=== PATIENT | female | born 1945 | race Caucasian/White ===

== ENCOUNTER → 2016-04-27 | Outpatient (CLI) | payer OTHER ==
[~2016-04-27] MED LIST: CRDCD240 PO; HYDC25 PO; LISI-725 PO
--- NOTE | 2016-04-27 16:03 | MAMMOGRAPHY REPORT ---
BILATERAL DIGITAL SCREENING MAMMOGRAM WITH CAD: 04/27/2016 CLINICAL HISTORY: Routine screening. Patient has no complaints. TECHNIQUE: Current study was also evaluated with a Computer Aided Detection (CAD) system. Bilatera l CC and MLO views were obtained. COMPARISON: Comparison is made to exams dated: 03/25/2015 mammogram, 03/24/2014 mammogram, 03/09/2013 ma mmogram, 02/28/2012 mammogram, 02/23/2010 mammogram, and 02/26/2011 mammogram - [facility]. BREAST COMPOSITION: There are scattered areas of fibroglandular density in both breasts. FINDINGS: No suspicious masses, calcifications, or areas of architectural distortion are noted in e ither breast. There has been no significant interval change compared to prior exams. Bilateral iraida gn-appearing calcifications are not significantly changed. A biopsy marker clip is again noted in t he right breast. Bilateral asymmetries are stable compared to prior exams. IMPRESSION: ACR BI-RADS CATEGORY 2: BENIGN There is no mammographic evidence of malignancy. A 1 year screening mammogram is recommended. The p atient will receive written notification of the results. Approximately 10% of breast cancers are not detected with mammography. A negative mammographic repor t should not delay biopsy if a clinically suggestive mass is present. Julia Gates M.D. /:04/27/2016 14:48:52 Licensed [employer]: Fiordaliza Thompson, [facility] letter sent: Normal 1/2 BI-RADS Code: ACR BI-RADS Category 2: Benign
== END | disposition home or self-care (01) ==
LOC: C.MAMM 09:43
PROVIDERS: ATTEND Family Medicine
DX: Z12.31 Encounter for screening mammogram for malignant neoplasm of breast (principal)

== ENCOUNTER 2017-04-23 13:19 | Emergency (ER) | payer OTHER ==
[2017-04-23 13:27] VITALS: TEMP 36.7
[2017-04-23] MEDS ORDERED: SODIUM CHLORIDE 0.9% 1000ML 1,000 ML IV STA (13:46)
--- NOTE | 2017-04-23 13:53 | EMERGENCY ROOM VISIT NOTE ---
History First contact with patient: 13:31 Chief Complaint: CONSTIPATION Stated Complaint: UNABLE TO HAVE A BOWEL MOVEMENT Nursing Triage Summary: pt reports constipation. last bm was saturday. pt used laxative yesterday with no result. History of Present Illness The patient is a 72 year old female who presents to the Emergency Room with complaints of constipation 3 weeks. The patient states she has been having bowel movements and that amount of time, but seems to have a "partial bowel movement, followed by a watery bowel movement." The patient states over the past 1 week, she has had very small, hard bowel movements which are difficult for her to pass. She states her last bowel movement like this was on Saturday, 2 days ago. She states overall she is feeling well, denies any recent illness or fever. She denies any significant abdominal pain, but states she does have a fullness sensation in her abdomen. She states yesterday, she took 2 doses of Dulcolax [id number], and while she got the urge to move her bowels, she was unable. She states today, she is experiencing a generalized fullness. She has not tried any enemas or suppositories. She states her diet is good and she tries to eat high-fiber foods. She states she does not drink enough fluids. She has been passing gas, and denies any history of bowel obstruction. She does have a family history of colon cancer in her father, and does have colonoscopies every 5 years. She states her last colonoscopy was approximately 1-1/2 years ago, and she reports a few small polyps were removed, but otherwise there were no abnormalities. The patient has not seen her PCP or butcher all round regarding her complaint. She denies any urinary symptoms, upper respiratory infection symptoms, chest pain, difficulty breathing, weakness , numbness or tingling, or flank pain. Review of Systems A complete 10 point review of systems was reviewed with the patient with pertinent positives and negatives as per history of present illness. All else were negative. Past Medical/Surgical History Hypertension Social History Smoking Status: Never Smoker Current/Historical Medications Scheduled Diltiazem Hcl Extended Release (Diltiazem Hcl), 1 TAB PO DAILY Hydrochlorothiazide (Hctz), 25 MG PO DAILY Lisinopril (Lisinopril), 20 MG PO DAILY Physical Exam Vital Signs Date Time Temp Pulse Resp B/P (MAP) Pulse Ox O2 Delivery O2 Flow Rate FiO2 04/23/17 14:00 75 18 155/72 96 Room Air 04/23/17 13:27 36.7 82 20 128/83 98 Room Air Physical Exam VITALS: Vitals are noted on the nurse's note and reviewed by myself. Vital signs stable. GENERAL: This is a 72-year-old white female, in no acute distress, nondiaphoretic, well-developed well-nourished. SKIN: The skin was without rashes, erythema, edema, or bruising. There is no tenting of the skin. Capillary reflex less than 2 seconds. HEAD: Normocephalic atraumatic. EARS: External auditory canals clear, tympanic membranes pearly zheng without erythema or effusion bilaterally. EYES: Pupils equal round and reactive to light and accommodation. Conjunctivae without injection, sclerae without icterus. Extraocular movements intact. NOSE: Patent, turbinates without inflammation or discharge. No sinus tenderness. MOUTH: Mucous membranes moist. Tonsils are not enlarged. Pharynx without erythema or exudate. Uvula midline. Airway patent. Tongue does not deviate. NECK: Supple without nuchal rigidity. No lymphadenopathy. No thyromegaly. Cervical spine is nontender. No JVD. HEART: Regular rate and rhythm without murmurs gallops or rubs. LUNGS: Clear to auscultation bilaterally without wheezes, rales or rhonchi. No dullness to percussion. No retractions or accessory muscle use. ABDOMEN: Positive bowel sounds x 4. Normal tympanic percussion. Soft, nontender, without masses or organomegaly. Garcia sign negative. No guarding or rebound tenderness. MUSCULOSKELETAL: No muscle atrophy, erythema, or edema noted. Full range of motion without joint tenderness in all extremities. No tenderness to palpation. Normal gait. Strength 5/5 throughout. NEURO: Patient was alert and oriented to person place and time. Normal sensation to light and sharp touch. Deep tendon reflexes 2+ throughout. No focal neurological deficits. Medical Decision & Procedures ER Provider Diagnostic Interpretation: ABDOMEN 2VIEW W/PA CHEST RTN HISTORY: 72 years-old Female constipation constipation with acute generalized abdominal pain COMPARISON: None available TECHNIQUE: PA view of the chest with erect and supine views of the abdomen FINDINGS: Cardiomediastinal and hilar silhouettes are within normal limits. There is no pneumothorax, pleural effusion, focal airspace consolidation or overt pulmonary edema. The bones of the chest appear grossly intact. No pneumoperitoneum on the upright projection. Renal shadows are partially obscured by bowel gas. Questioned 2 mm right-sided renal calculus at the level of L3. No definite ureteral calculi identified. Moderate stool volume is seen throughout the colon with mild gaseous distention of the splenic flexure. Degenerative changes noted about the lower lumbar spine and pelvis. IMPRESSION: 1. Moderate stool volume throughout the colon with a nonobstructive bowel gas pattern. 2. No acute process of the chest. 3. Questioned right-sided nephrolithiasis. The above report was generated using voice recognition software. It may contain grammatical, syntax or spelling errors. Electronically signed by: James Cochran M.D. 04/23/2017 2:23 PM Dictated Date/Time: 04/23/2017 2:20 PM Laboratory Results 04/23/17 13:57 Red Blood Count 4.94, Mean Corpuscular Volume 80.6, Mean Corpuscular Hemoglobin 27.5, Mean Corpuscular Hemoglobin Concent 34.2, Mean Platelet Volume 9.8, Neutrophils (%) (Auto) 59.7, Lymphocytes (%) (Auto) 32.7, Monocytes (%) (Auto) 6.6, Eosinophils (%) (Auto) 0.2, Basophils (%) (Auto) 0.6, Neutrophils # (Auto) 3.00, Lymphocytes # (Auto) 1.64, Monocytes # (Auto) 0.33, Eosinophils # (Auto) 0.01, Basophils # (Auto) 0.03 04/23/17 13:57 Test 04/23/17 13:57 White Blood Count 5.02 K/uL (4.8-10.8) Red Blood Count 4.94 M/uL (4.2-5.4) Hemoglobin 13.6 g/dL (12.0-16.0) Hematocrit 39.8 % (37-47) Mean Corpuscular Volume 80.6 fL (80-100) Mean Corpuscular Hemoglobin 27.5 pg (25-34) Mean Corpuscular Hemoglobin Concent 34.2 g/dl (32-36) Platelet Count 251 K/uL (130-400) Mean Platelet Volume 9.8 fL (7.4-10.4) Neutrophils (%) (Auto) 59.7 % Lymphocytes (%) (Auto) 32.7 % Monocytes (%) (Auto) 6.6 % Eosinophils (%) (Auto) 0.2 % Basophils (%) (Auto) 0.6 % Neutrophils # (Auto) 3.00 K/uL (1.4-6.5) Lymphocytes # (Auto) 1.64 K/uL (1.2-3.4) Monocytes # (Auto) 0.33 K/uL (0.11-0.59) Eosinophils # (Auto) 0.01 K/uL (0-0.5) Basophils # (Auto) 0.03 K/uL (0-0.2) RDW Standard Deviation 41.2 fL (36.4-46.3) RDW Coefficient of Variation 14.0 % (11.5-14.5) Immature Granulocyte % (Auto) 0.2 % Immature Granulocyte # (Auto) 0.01 K/uL (0.00-0.02) Anion Gap 8.0 mmol/L (3-11) Estimated GFR () 46.8 Estimated GFR (Non- 40.4 BUN/Creatinine Ratio 18.9 (10-20) Calcium Level 9.2 mg/dl (8.5-10.1) Total Bilirubin 0.8 mg/dl (0.2-1) Aspartate Amino Transf (AST/SGOT) 20 U/L (15-37) Alanine Aminotransferase (ALT/SGPT) 25 U/L (12-78) Alkaline Phosphatase 86 U/L (45-117) Total Protein 8.8 gm/dl (6.4-8.2) Albumin 4.2 gm/dl (3.4-5.0) Globulin 4.6 gm/dl (2.5-4.0) Albumin/Globulin Ratio 0.9 (0.9-2) Medications Administered Medications (Trade) Dose Ordered Sig/Daria Route Start Time Stop Time Status Last Admin Dose Admin Sodium Chloride 1,000 ml @ 999 mls/hr Q1H1M STAT IV 04/23/17 13:46 04/23/17 14:46 DC 04/23/17 13:59 999 MLS/HR ED Course The patient was seen and evaluated as above. IV access obtained, labs drawn. The patient was given 1 L normal saline solution through the IV as well as prune juice. Abdominal x-ray was performed and reviewed by myself and radiologist as above. Labs were reviewed by myself and discussed with the patient at bedside. I discussed the case with Dr. Munguia. The patient was given 100 mg Colace to help with constipation while here in the emergency department at her request. Discharge instructions reviewed, the patient was discharged home in good condition. Medical Decision This is a 72-year-old female patient presents to the emergency department today complaining of constipation 3-4 weeks. She does have a history of similar constipation, but states it has never lasted this long. Of note, the patient does have a family history of colon cancer in her father, and does get colonoscopies every 5 years. Her last one was approximately 1-1/2 years ago, and she states she had a few small polyps removed, but no other abnormalities noted. There is no significant abdominal pain or bloating associated with her symptoms. There is been no vomiting or nausea. The patient's CBC was without leukocytosis, anemia, thrombocytopenia. The patient is slightly neutropenic with a sodium level of 133. Her creatinine is slightly elevated at 1.3. This is more elevated than patient's previous visit, but she does see her primary care provider regularly for routine labs. I suspect the patient is slightly dehydrated, as she states she has not been drinking as much as she knows she should. The patient's other electrolytes and hepatic function were without significant abnormality. Urinalysis was negative for signs of infection. The patient's symptoms are consistent with a possible slow transit constipation , however I am uncertain as to the exact etiology. With the patient's family history of colon cancer, I did strongly encourage close follow-up with a butcher all round and possible repeat colonoscopy earlier than normal. The patient is agreeable to follow-up, and will contact her PCP and butcher all round this week. Differential diagnosis includes constipation, ileus, infection, electrolyte or metabolic abnormality, endocrine abnormality, small bowel obstruction, polyps, diverticulitis, diverticulosis, malignancy, and others Medication Reconcilliation Current Medication List: was personally reviewed by me Blood Pressure Screening Patient's blood pressure: Normal blood pressure Impression Primary Impression: Constipation Departure Information Dispostion Home / Self-Care Condition GOOD Referrals No Doctor, Assigned (PCP) [facility] Patient Instructions ED Constipation, My [facility] Additional Instructions You have been treated in the Emergency Department today for Constipation. Laboratory results and imaging studies do not indicate any emergent issues warranting surgery or admission. You should drink plenty of fluids and stay well hydrated as this can help soften your stool. Increasing your fiber intake can help with frequency and consistency of your stools. Fruits, vegetables, and whole grains are all good sources of dietary fibers. Consider drinking prune juice or eating prunes to help with constipation. In addition, you might consider adding supplemental fiber to your diet as well (i.e. Benefiber, Fiber Choice, Metamucil). For a short time, you may consider taking Colace twice daily and 1 capful of Miralax once per day. Please follow-up with your primary care provider regarding the addition of these medications if you are using them longer than 2- 3 days due to the potential to cause electrolyte abnormalities and worsening symptoms. Follow-up with your primary care provider within 1 week to discuss your constipation issues. Please follow-up with your butcher all round for discussion regarding the constipation and possible repeat colonoscopy due to your family history of colon cancer. Return to the Emergency Department if your current symptoms worsen despite treatment course outlined above, or if you develop any of the following symptoms : worsening abdominal pain, large amount of blood in the stool, black or tarry stools, fevers, chills, or uncontrollable vomiting. Problem Qualifiers Primary Impression: Constipation Constipation type: unspecified constipation type Qualified Codes: K59.00 - Constipation, unspecified
--- NOTE | 2017-04-23 13:55 | EMERGENCY ROOM VISIT NOTE ---
ED Visit Note First contact with patient: 13:31 I have seen and examined this patient with Nadege Ellsworth and generally agree with the treatment plan as discussed. Current/Historical Medications Scheduled Diltiazem Hcl Cd (Cardizem Cd *), 240 MG PO DAILY Hydrochlorothiazide (Hctz *), 25 MG PO DAILY Lisinopril (Zestril), 20 MG PO DAILY Allergies Coded Allergies: No Known Allergies (Verified Allergy, Mild, 02/15/07) Vital Signs Date Time Temp Pulse Resp B/P (MAP) Pulse Ox O2 Delivery O2 Flow Rate FiO2 04/23/17 13:27 36.7 82 20 128/83 98 Room Air Laboratory Results Test 04/23/17 13:46 Departure Information Referrals Terese Iverson D.OJenelle (PCP) Patient Instructions My [facility]
[2017-04-23 14:07] LABS: BASO % 0.6 %; BASO ABS # 0.03 K/uL (0-0.2); EOS % 0.2 %; EOS ABS # 0.01 K/uL (0-0.5); HEMATOCRIT 39.8 % (37-47); HEMOGLOBIN 13.6 g/dL (12.0-16.0); IG# 0.01 K/uL (0.00-0.02); LYMPH % 32.7 %; LYMPH ABS # 1.64 K/uL (1.2-3.4); MEAN CELL VOLUME 80.6 fL (80-100); MEAN CORPUSCULAR HEMOGLOBIN 27.5 pg (25-34); MEAN CORPUSCULAR HGB CONC 34.2 g/dl (32-36); MEAN PLATELET VOLUME 9.8 fL (7.4-10.4); MONO % 6.6 %; MONO ABS # 0.33 K/uL (0.11-0.59); NEUT % 59.7 %; PLATELET COUNT 251 K/uL (130-400); RED CELL DISTRIBUTION WIDTH SD 41.2 fL (36.4-46.3); WHITE BLOOD COUNT 5.02 K/uL (4.8-10.8)
--- NOTE | 2017-04-23 14:24 | DIAGNOSTIC IMAGING REPORT ---
ABDOMEN 2VIEW W/PA CHEST RTN HISTORY: 72 years-old Female constipation constipation with acute generalized abdominal pain COMPARISON: None available TECHNIQUE: PA view of the chest with erect and supine views of the abdomen FINDINGS: Cardiomediastinal and hilar silhouettes are within normal limits. There is no pneumothorax, pleural effusion, focal airspace consolidation or overt pulmonary edema. The bones of the chest appear grossly intact. No pneumoperitoneum on the upright projection. Renal shadows are partially obscured by bowel gas. Questioned 2 mm right-sided renal calculus at the level of L3. No definite ureteral calculi identified. Moderate stool volume is seen throughout the colon with mild gaseous distention of the splenic flexure. Degenerative changes noted about the lower lumbar spine and pelvis. IMPRESSION: 1. Moderate stool volume throughout the colon with a nonobstructive bowel gas pattern. 2. No acute process of the chest. 3. Questioned right-sided nephrolithiasis. The above report was generated using voice recognition software. It may contain grammatical, syntax or spelling errors. Electronically signed by: James Cochran M.D. 04/23/2017 2:23 PM Dictated Date/Time: 04/23/2017 2:20 PM
[2017-04-23 14:28] LABS: ALBUMIN 4.2 gm/dl (3.4-5.0); ALT/SGPT 25 U/L (12-78); AST/SGOT 20 U/L (15-37); BLOOD UREA NITROGEN 25 mg/dl (7-18); CALCIUM 9.2 mg/dl (8.5-10.1); CARBON DIOXIDE 26 mmol/L (21-32); GLUCOSE 125 mg/dl (70-99); POTASSIUM 3.5 mmol/L (3.5-5.1); SODIUM 133 mmol/L (136-145)
[2017-04-23 14:30] LABS: ALKALINE PHOSPHATASE 86 U/L (45-117); TOTAL PROTEIN 8.8 gm/dl (6.4-8.2)
[2017-04-23] MEDS ORDERED: DOCUSATE SODIUM 100 MG CAP PO STA (14:37)
[2017-04-23] MEDS ORDERED: HYDR25TA4 PO (14:47)
[2017-04-23] MEDS ORDERED: DILT-204 PO (14:47)
[2017-04-23] MEDS ORDERED: LSN20 PO (14:47)
[2017-04-23] MEDS ORDERED: DILT240C75 PO (14:48)
[2017-04-23 15:05] VITALS: BP 155/72; PULSE 75; O2SAT 96
== END 2017-04-23 15:05 | disposition home or self-care (01) ==
LOC: C.EDB 13:21
DX: K59.00 Constipation, unspecified (principal); I10 Essential (primary) hypertension; Z80.0 Family history of malignant neoplasm of digestive organs

== ENCOUNTER → 2017-05-01 | Outpatient (CLI) | payer OTHER ==
[~2017-05-01] MED LIST changes: -CRDCD240 PO; +DILT240C75 PO; -HYDC25 PO; +HYDR25TA4 PO; -LISI-725 PO; +LSN20 PO
--- NOTE | 2017-05-01 15:37 | MAMMOGRAPHY REPORT ---
BILATERAL DIGITAL SCREENING MAMMOGRAM TOMOSYNTHESIS WITH CAD: 05/01/2017 CLINICAL HISTORY: Routine screening. The patient has no current complaints. TECHNIQUE: Breast tomosynthesis in addition to standard 2D mammography was performed. Current study was also evaluated with a Computer Aided Detection (CAD) system. COMPARISON: Comparison is made to exams dated: 04/27/2016 mammogram, 03/25/2015 mammogram, 03/24/2014 [facility] mogram, 03/09/2013 mammogram, 02/28/2012 mammogram, and 02/26/2011 mammogram - [facility]. BREAST COMPOSITION: There are scattered areas of fibroglandular density in both breasts. FINDINGS: No suspicious masses, calcifications, or areas of architectural distortion are noted in ei ther breast. There has been no significant interval change compared to prior exams. A biopsy clip is again noted within the right breast. Bilateral benign-appearing calcifications are not significantl y changed. IMPRESSION: ACR BI-RADS CATEGORY 2: BENIGN There is no mammographic evidence of malignancy. A 1 year screening mammogram is recommended. The pa tient will receive written notification of the results. Approximately 10% of breast cancers are not detected with mammography. A negative mammographic report should not delay biopsy if a clinically suggestive mass is present. Julia Gates M.D. ah/:05/01/2017 14:48:29 Business Proposal Rep: Fiordaliza SHARP)(M), [facility] letter sent: Normal 1/2 BI-RADS Code: ACR BI-RADS Category 2: Benign
== END | disposition home or self-care (01) ==
LOC: C.MAMM 13:21
PROVIDERS: ATTEND Family Medicine
DX: Z12.31 Encounter for screening mammogram for malignant neoplasm of breast (principal)

== ENCOUNTER 2021-03-01 16:19 | Inpatient (IN) ==
[2021-03-01] MEDS ORDERED: ASPIRIN CHEW 324 MG PO STA (16:42)
[2021-03-01 17:02] LABS: Basophils # (auto) 0.03 K/uL (0-0.2); Basophils % (auto) 0.3 %; Eosinophils # (auto) 0.01 K/uL (0-0.5); Eosinophils % (auto) 0.1 %; Hemoglobin 13.7 g/dL (12.0-16.0); Immature Granulocytes # (auto) 0.02 K/uL (0.00-0.02); Immature Granulocytes % (auto) 0.2 %; Lymphocytes # (auto) 1.71 K/uL (1.2-3.4); Lymphocytes % (auto) 16.1 %; Mean Corpuscular Hemoglobin 27.3 pg (25-34); Mean Corpuscular Hgb Conc 32.6 g/dL (32-36); Mean Corpuscular Volume 83.8 fL (80-100); Mean Platelet Volume 11.3 fL (7.4-10.4); Monocytes # (auto) 0.44 K/uL (0.11-0.59); Monocytes % (auto) 4.2 %; Neutrophils # (auto) 8.38 K/uL (1.4-6.5); Neutrophils % (auto) 79.1 %; Platelet Count 208 K/uL (130-400); RDW Coefficient of Variation 14.5 % (11.5-14.5); RDW Standard Deviation 43.6 fL (36.4-46.3); Red Blood Count 5.01 M/uL (4.2-5.4); White Blood Count 10.59 K/uL (4.8-10.8)
[2021-03-01 17:14] LABS: Base Excess VBG -2.6 mEq/L; HCO3 VBG 22 mmol/L; PCO2 VBG 38 mmHg (38-50); PO2 VBG 25 mmHg; pH VBG 7.38 (7.36-7.41)
[2021-03-01 17:15] LABS: Oxygen Saturation VBG < 60.0 %
[2021-03-01 17:19] LABS: INR 1.1 (0.9-1.1); Partial Thromboplastin Ratio 0.8; Prothrombin Time 11.5 Seconds (9.0-12.0)
--- NOTE | 2021-03-01 17:19 | XRay Report ---
XR chest 1V portable HISTORY: 76 years-old Female Chest Pain acute atypical chest pain COMPARISON: Chest radiograph 01/22/2021 TECHNIQUE: Portable AP view of the chest FINDINGS: Cardiac silhouette is moderately enlarged. There is no pneumothorax, pleural effusion, airspace conso lidation or overt pulmonary edema. There is unchanged mild interstitial coarsening of the lung bases. The bones appear grossly intact. A partially imaged linear metallic density needle shaped structure overlies the left AC joint, possibly external to the patient. IMPRESSION: Cardiomegaly without acute process. ACT 112: Negative or not required by law. The above report was generated using voice recognition software. It may contain grammatical, syntax o r spelling errors. Electronically signed by: Hayden Cochran M.D. 03/01/2021 5:18 PM
[2021-03-01 17:29] LABS: Anion Gap 16 (3-11); BUN Creatinine Ratio 24.8 (10-20); Blood Urea Nitrogen 32 mg/dl (6-23); Calcium 9.5 mg/dl (8.5-10.1); Carbon Dioxide 20 mmol/L (21-32); Chloride 102 mmol/L (98-107); Est GFR (African American) 45.9 ml/min; Est GFR (Non-African American) 39.6 ml/min; Glucose 206 mg/dl (70-99); Lipase 14 U/L (11-82); Potassium 3.9 mmol/L (3.5-5.1); Sodium 138 mmol/L (136-145)
[2021-03-01 17:30] LABS: Partial Thromboplastin Time < 20.0 Seconds (21.0-31.0)
[2021-03-01 17:33] LABS: D Dimer 8210 ug/L FEU (0-500)
[2021-03-01] MEDS ORDERED: OPTIRAY 320 125ml IV ONE (18:58)
[2021-03-01 19:09] LABS: Influenza A virus by PCR Negative (Neg); Influenza B virus by PCR Negative (Neg); RSV by PCR Negative (Neg); SARS CoV2 RNA(COVID-19) InHosp NEGATIVE (Negative)
--- NOTE | 2021-03-01 19:38 | CT Scan Report ---
CT angio chest PE protocol CT DOSE: 307.04 mGy.cm HISTORY: 76 years-old Female with ro PE. Acute shortness of breath TECHNIQUE: Multiple CTA images of the chest were obtained after the intravenous administration of 117 ml Optiray. Coronal and sagittal MIPS were obtained from the axial data set and were submitted for review. All measurements were obtained according to NASCET criteria. A dose lowering technique was u tilized adhering to the principles of ALARA. COMPARISON: Chest radiograph of same day, CT lumbar spine 01/22/2021 FINDINGS: CTA: Moderate cardiomegaly. Trace pericardial effusion. Moderate coronary artery calcifications. The left heart structures are suboptimally opacified secondary to contrast bolus timing. Fusiform dilation of the descending thoracic aorta measures 4.0 x 4.0 cm. Mild associated atherosclerosis. Extensive bilat eral pulmonary emboli involve the distal lobar branches extending into the segmental and subsegmental branches within all lobes bilaterally. Straightening of the intraventricular septum. Dilated right h eart chambers with reflux of contrast into the IVC and hepatic veins. CT CHEST: Heterogeneity of the thyroid. No adenopathy. The inferior lung bases are only partially imaged. No pn eumothorax or definite pleural effusion. Subsegmental left greater than right bibasilar atelectasis w ith areas of air trapping. There are a few scattered subsegmental subpleural groundglass densities no eloisa throughout the right lung. The central airways appear patent. Tiny hiatal hernia with mild distal esophageal wall thickening. There are a few hypodensities of the left hepatic lobe measuring up to 7 mm which are too small to characterize, possibly cysts. Unremarka ble soft tissues. Degenerative changes of the shoulders and spine. Acute 40% superior endplate compre ssion deformity of the T11 vertebral body demonstrates 3 mm retropulsion. Mild paravertebral edema. IMPRESSION: 1. Extensive bilateral pulmonary emboli with evidence of right heart strain. 2. Left greater than right bibasilar atelectasis with areas of mild associated air trapping. 3. Subsegmental scattered subpleural groundglass opacities throughout right lung are suggestive of an infectious or inflammatory pneumonitis. Developing pulmonary infarcts could appear similarly. 4. Acute 40% T11 superior endplate compression deformity with paravertebral edema, new from 01/22/2021 . ACT 112: Negative or not required by law. The above report was generated using voice recognition software. It may contain grammatical, syntax o r spelling errors. Electronically signed by: Hayden Cochran M.D. 03/01/2021 7:36 PM
--- NOTE | 2021-03-01 19:46 | Emergency Department Note ---
History of Present Illness General Chief Complaint: Respiratory Problems Stated Complaint: LOW OXYGEN LEVEL, HARD TO BREATHE Time Seen by Provider: 03/01/21 16:32 History of Present Illness Provider Complaint: shortness of breath Onset (ago): day(s) (2) Severity: severe Consistency/Duration: + progressively worsening Relieved By: + oxygen Exacerbated By: + exertion Known history of: DVT Associated symptoms: + pain with inspiration and + cough; no chest pain, no fever, no sputum production, no orthopnea, no lower extremity pain, no polyuria, no palpitations, no hemoptysis, no diaphoresis, no nausea/vomiting, no syncope, no abdominal pain, no sense of impending doom or no chest congestion Related Data Home oxygen amount: none Home Medications Medication Instructions Recorded Confirmed Type atorvastatin 10 mg tablet 10 mg PO DAILY 01/22/21 03/01/21 History cyanocobalamin (vitamin B-12) 1,000 mcg PO DAILY 01/22/21 03/01/21 History 1,000 mcg tablet (Vitamin B-12) diltiazem HCl 120 mg 120 mg PO DAILY 01/22/21 03/01/21 History capsule,extended release 24 hr dorzolamide 22.3 mg-timolol 6.8 1 drp OPHTHALMIC (EYE) DIRECTED 01/22/21 03/01/21 History mg/mL eye drops folic acid 0.8 mg capsule 0.8 mg PO DAILY 01/22/21 03/01/21 History lisinopril 20 1 tab PO DAILY 01/22/21 03/01/21 History mg-hydrochlorothiazide 25 mg tablet Allergies Allergy/AdvReac Type Severity Reaction Status Date / Time No Known Allergies Allergy Mild Verified 03/01/21 18:04 Past Med/Surg History Medical History HLD (hyperlipidemia) Hypertension No pertinent family history Surgical History No pertinent past surgical history Social History Smoking Status: Never smoker Preferred Language: [place] marital status: Feels Safe at Home: Yes Review of Systems A total of 10 systems reviewed and were otherwise negative Physical Exam Vital Signs: Vital Signs - 24 hr 03/01/21 16:23 03/01/21 16:54 03/01/21 17:15 Temperature 36.8 C Temperature Source Temporal Artery Sc an Pulse Rate 95 H Pulse Rate [Apical ] 84 Pulse Rhythm Regular Pulse Rhythm [Apic al] Pulse Strength Normal Respiratory Rate 28 H 25 H Respiratory Effort / Characteristics Labored Short of Breath SO B on Exertion Respiratory Depth Normal Respiratory Patter n Regular Blood Pressure 97/73 L Blood Pressure [Le ft Arm] 122/81 Blood Pressure Anai n 81 Blood Pressure Anai n [Left Arm] 94 Blood Pressure Pos ition Sitting Pulse Oximetry 90 95 95 Oxygen Delivery Me thod Room Air Nasal Cannula Nasal Cannula Oxygen Flow Rate 4 4 Sepsis Recent Feve r Within 48 Hours No Sepsis New/Unexpla ined Change in Men tomasz Status No Sepsis Action Take n by Nursing No Action Required 03/01/21 19:25 03/01/21 20:05 Temperature Temperature Source Pulse Rate Pulse Rate [Apical ] 91 H 91 H Pulse Rhythm Pulse Rhythm [Apic al] Irregular Pulse Strength Respiratory Rate 19 20 Respiratory Effort / Characteristics Respiratory Depth Respiratory Patter n Blood Pressure Blood Pressure [Le ft Arm] 138/95 116/81 Blood Pressure Anai n Blood Pressure Anai n [Left Arm] 109 92 Blood Pressure Pos ition Pulse Oximetry 94 95 Oxygen Delivery Me thod Oxygen Flow Rate Sepsis Recent Feve r Within 48 Hours Sepsis New/Unexpla ined Change in Men tomasz Status Sepsis Action Take n by Nursing Physical Exam: Physical Exam HENT: Exam performed. -Head: Normocephalic and atraumatic. -Right Ear: External ear normal. No mastoid tenderness. -Left Ear: External ear normal. No mastoid tenderness. -Mouth/Throat: The oropharynx is clear and moist. No trismus in the jaw. No dental abscesses or uvula swelling. No oropharyngeal exudate or tonsillar absc esses. EYES: Conjunctivae and EOM are normal. Pupils are equal, round, and reactive to light. Right eye exhibits no discharge. Left eye exhibits no discharge. No scleral icterus. NECK: Normal range of motion. Neck supple. No JVD present. No spinous process tenderness present. No carotid bruit present. No rigidity. No tracheal deviation and normal range of motion present. No Brudzinski's sign and no Kernig's sign noted. CV: Normal rate, irregular rhythm, normal heart sounds and intact distal pulses. There is no peripheral edema. Palpable radial pulses bue. PULM/CHEST: Rhonchi bilaterally. Tachypnea. -Chest Wall: She exhibits no tenderness. ABD: The abdomen is soft. Bowel sounds are normal. She has no distension. No mass is present. There is no tenderness. There is no rebound, no guarding, no Garcia's sign and no tenderness at McBurney's point. Rovsig negative MUSC/SKEL: Normal range of motion. There is no peripheral edema, tenderness or deformity. LYMPH: No cervical adenopathy. NEURO: She is alert and oriented to person, place, and time. She has normal strength. No cranial nerve deficit or sensory deficit. Coordination and gait normal. GCS eye subscore is 4. GCS verbal subscore is 5. GCS motor subscore is 6. Cerebellar tests wnl. SKIN: Skin is warm and dry. She is not diaphoretic. PSYCH: She has a normal mood and affect. Behavior is normal. Judgment and thought content normal. Course Course 1632: The patient was evaluated in room A12. A complete history and physical exam was performed Cardiac monitoring: An order was placed for continuous cardiac monitoring. The monitor shows a rate of 80 with atrial fibrilation rhythm Patient reports no history of atrial fibrillation. Patient is found to be hypoxic on room air, supplemental oxygen was applied via nasal cannula to improve the patient's oxygen saturation. 1950: Vital signs stable on supplemental oxygen via nasal cannula. Labs showed elevated troponin and elevated D-dimer. Imaging shows an extensive PE with right ventricular strain as well as possible developing infarct. I discussed the case with pulmonology on-call Dr. Yanes who agrees with me that the patient is not a tPA candidate as she is in no respiratory distress and her blood pressure is stable. Patient will be started on heparin. Discussed case with [facility] hospitalist Dr. Garcia agrees to evaluate the patient for admission. Administered Medications Heparin Sodium/Dextrose (Heparin Sodium/Dextrose) 25,000 units in 500 mls @ 0.02 mls/hr IV .Q24H [facility]; Protocol Stop: 03/31/21 20:14 Last Admin: 03/01/21 20:03 Dose: 25 units/hr, 0.5 mls/hr Documented by: [id number] Cosigned by: [id number] Sodium Chloride (Nss 1000ml) 1,000 mls @ 60 mls/hr IV .[id number] ONE Stop: 03/02/21 12:39 Last Admin: 03/01/21 20:08 Dose: 60 mls/hr Documented by: [id number] Discontinued Medications Aspirin (Aspirin Chew 324 Mg) 324 mg PO NOW STA Stop: 03/01/21 16:43 Last Admin: 03/01/21 17:05 Dose: 324 mg Documented by: [id number] Heparin Sodium (Porcine) (Heparin Sod (Porcine) 1000 Unit/Ml) 1 units IV NOW ONE Stop: 03/01/21 20:03 Last Admin: 03/01/21 20:03 Dose: 5,000 units Documented by: [id number] Cosigned by: [id number] Heparin Sodium/Dextrose (Heparin Iv Adult Wt-Based Standard With Bolus Protocol) 1 ea IV NOW STA; Protocol Stop: 03/01/21 19:48 Last Admin: 03/01/21 20:07 Dose: Not Given Documented by: [id number] Ioversol (Optiray 320 125ml) 117 ml IV ONCE ONE Stop: 03/01/21 18:59 Last Admin: 03/01/21 19:03 Dose: 117 ml Documented by: [id number] Medical Decision Making Laboratory Data Result diagrams: 03/01/21 16:54 03/01/21 16:54 Lab Results 03/01/21 03/01/21 03/01/21 Range/Units 16:54 16:54 16:54 WBC 10.59 (4.8-10.8) K/uL RBC 5.01 (4.2-5.4) M/uL Hgb 13.7 (12.0-16.0) g/dL Hct 42.0 (37-47) % MCV 83.8 (80-100) fL MCH 27.3 (25-34) pg MCHC 32.6 (32-36) g/dL RDW Std Deviation 43.6 (36.4-46.3) fL RDW Coeff of Gabbi 14.5 (11.5-14.5) % Plt Count 208 (130-400) K/uL MPV 11.3 H (7.4-10.4) fL Immature Gran % (Auto) 0.2 % Neut % (Auto) 79.1 % Lymph % (Auto) 16.1 % [place] % (Auto) 4.2 % Eos % (Auto) 0.1 % Baso % (Auto) 0.3 % Neut # (Auto) 8.38 H (1.4-6.5) K/uL Lymph # (Auto) 1.71 (1.2-3.4) K/uL [place] # (Auto) 0.44 (0.11-0.59) K/uL Eos # (Auto) 0.01 (0-0.5) K/uL Baso # (Auto) 0.03 (0-0.2) K/uL Immature Gran # (Auto) 0.02 (0.00-0.02) K/uL PT 11.5 (9.0-12.0) Seconds INR 1.1 (0.9-1.1) APTT < 20.0 L (21.0-31.0) Seconds PTT Ratio 0.8 D-Dimer 8210 H* (0-500) ug/L FEU VBG pH (7.36-7.41) VBG pCO2 (38-50) mmHg VBG pO2 mmHg VBG HCO3 mmol/L VBG O2 Saturation % VBG Base Excess mEq/L Barometric Pressure mm/Hg Sodium 138 (136-145) mmol/L Potassium 3.9 (3.5-5.1) mmol/L Chloride 102 (98-107) mmol/L Carbon Dioxide 20 L (21-32) mmol/L Anion Gap 16 H (3-11) BUN 32 H (6-23) mg/dl Creatinine 1.29 H (0.6-1.2) mg/dl Est Cr Clr Drug Dosing Not Reportable Est GFR ( Amer) 45.9 ml/min Est GFR (Non-Af Amer) 39.6 ml/min BUN/Creatinine Ratio 24.8 H (10-20) Glucose 206 H (70-99) mg/dl Calcium 9.5 (8.5-10.1) mg/dl Troponin I 0.10 H* (0-0.04) ng/ml B-Natriuretic Peptide (0-100) pg/ml Lipase 14 (11-82) U/L SARS-CoV-2 (PCR) (Negative) Influenza Type A (PCR) (Neg) Influenza Type B (PCR) (Neg) RSV (RT-PCR) (Neg) 03/01/21 03/01/21 03/01/21 Range/Units 16:55 16:55 Unknown WBC (4.8-10.8) K/uL RBC (4.2-5.4) M/uL Hgb (12.0-16.0) g/dL Hct (37-47) % MCV (80-100) fL MCH (25-34) pg MCHC (32-36) g/dL RDW Std Deviation (36.4-46.3) fL RDW Coeff of Gabbi (11.5-14.5) % Plt Count (130-400) K/uL MPV (7.4-10.4) fL Immature Gran % (Auto) % Neut % (Auto) % Lymph % (Auto) % [place] % (Auto) % Eos % (Auto) % Baso % (Auto) % Neut # (Auto) (1.4-6.5) K/uL Lymph # (Auto) (1.2-3.4) K/uL [place] # (Auto) (0.11-0.59) K/uL Eos # (Auto) (0-0.5) K/uL Baso # (Auto) (0-0.2) K/uL Immature Gran # (Auto) (0.00-0.02) K/uL PT (9.0-12.0) Seconds INR (0.9-1.1) APTT (21.0-31.0) Seconds PTT Ratio D-Dimer (0-500) ug/L FEU VBG pH 7.38 (7.36-7.41) VBG pCO2 38 (38-50) mmHg VBG pO2 25 mmHg VBG HCO3 22 mmol/L VBG O2 Saturation < 60.0 % VBG Base Excess -2.6 mEq/L Barometric Pressure 731.6 mm/Hg Sodium (136-145) mmol/L Potassium (3.5-5.1) mmol/L Chloride (98-107) mmol/L Carbon Dioxide (21-32) mmol/L Anion Gap (3-11) BUN (6-23) mg/dl Creatinine (0.6-1.2) mg/dl Est Cr Clr Drug Dosing Est GFR ( Amer) ml/min Est GFR (Non-Af Amer) ml/min BUN/Creatinine Ratio (10-20) Glucose (70-99) mg/dl Calcium (8.5-10.1) mg/dl Troponin I (0-0.04) ng/ml B-Natriuretic Peptide 1202 H (0-100) pg/ml Lipase (11-82) U/L SARS-CoV-2 (PCR) NEGATIVE (Negative) Influenza Type A (PCR) Negative (Neg) Influenza Type B (PCR) Negative (Neg) RSV (RT-PCR) Negative (Neg) Imaging Data Radiologist's Impression: Chest X-Ray 03/01/21 16:42 XR chest 1V portable HISTORY: 76 years-old Female Chest Pain acute atypical chest pain COMPARISON: Chest radiograph 01/22/2021 TECHNIQUE: Portable AP view of the chest FINDINGS: Cardiac silhouette is moderately enlarged. There is no pneumothorax, pleural effusion, airspace consolidation or overt pulmonary edema. There is unchanged mild interstitial coarsening of the lung bases. The bones appear grossly intact. A partially imaged linear metallic density needle shaped structure overlies the left AC joint, possibly external to the patient. IMPRESSION: Cardiomegaly without acute process. ACT 112: Negative or not required by law. The above report was generated using voice recognition software. It may contain grammatical, syntax or spelling errors. Electronically signed by: Hayden Cochran M.D. 03/01/2021 5:18 PM Chest CTA 03/01/21 17:34 CT angio chest PE protocol CT DOSE: 307.04 mGy.cm HISTORY: 76 years-old Female with ro PE. Acute shortness of breath TECHNIQUE: Multiple CTA images of the chest were obtained after the intravenous administration of 117 ml Optiray. Coronal and sagittal MIPS were obtained from the axial data set and were submitted for review. All measurements were obtained according to NASCET criteria. A dose lowering technique was utilized adhering to the principles of ALARA. COMPARISON: Chest radiograph of same day, CT lumbar spine 01/22/2021 FINDINGS: CTA: Moderate cardiomegaly. Trace pericardial effusion. Moderate coronary artery calcifications. The left heart structures are suboptimally opacified secondary to contrast bolus timing. Fusiform dilation of the descending thoracic aorta measures 4.0 x 4.0 cm. Mild associated atherosclerosis. Extensive bilateral pulmonary emboli involve the distal lobar branches extending into the segmental and subsegmental branches within all lobes bilaterally. Straightening of the intraventricular septum. Dilated right heart chambers with reflux of contrast into the IVC and hepatic veins. CT CHEST: Heterogeneity of the thyroid. No adenopathy. The inferior lung bases are only partially imaged. No pneumothorax or definite pleural effusion. Subsegmental left greater than right bibasilar atelectasis with areas of air trapping. There are a few scattered subsegmental subpleural groundglass densities noted throughout the right lung. The central airways appear patent. Tiny hiatal hernia with mild distal esophageal wall thickening. There are a few hypodensities of the left hepatic lobe measuring up to 7 mm which are too small to characterize, possibly cysts. Unremarkable soft tissues. Degenerative changes of the shoulders and spine. Acute 40% superior endplate compression deformity of the T11 vertebral body demonstrates 3 mm retropulsion. Mild paravertebral edema. IMPRESSION: 1. Extensive bilateral pulmonary emboli with evidence of right heart strain. 2. Left greater than right bibasilar atelectasis with areas of mild associated air trapping. 3. Subsegmental scattered subpleural groundglass opacities throughout right lung are suggestive of an infectious or inflammatory pneumonitis. Developing pulmonary infarcts could appear similarly. 4. Acute 40% T11 superior endplate compression deformity with paravertebral edema, new from 01/22/2021. ACT 112: Negative or not required by law. The above report was generated using voice recognition software. It may contain grammatical, syntax or spelling errors. Electronically signed by: Hayden Cochran M.D. 03/01/2021 7:36 PM ECG Data Interpretation: EKG #1 at 1637: Atrial fibrillation with a rate of 93. QRS and QTc intervals within normal limits. No ST elevation or ST depression. EKG #2 at 1713: Atrial fibrillation with a rate of 83. QRS and QTc intervals are within normal limits. No ST elevation or ST depression. [facility] Narrative 1632: The patient was evaluated in room A12. A complete history and physical exam was performed Cardiac monitoring: An order was placed for continuous cardiac monitoring. The monitor shows a rate of 80 with atrial fibrilation rhythm Patient reports no history of atrial fibrillation. Patient is found to be hypoxic on room air, supplemental oxygen was applied via nasal cannula to improve the patient's oxygen saturation. 1950: Vital signs stable on supplemental oxygen via nasal cannula. Labs showed elevated troponin and elevated D-dimer. Imaging shows an extensive PE with right ventricular strain as well as possible developing infarct. I discussed the case with pulmonology on-call Dr. Yanes who agrees with me that the patient is not a tPA candidate as she is in no respiratory distress and her blood pressure is stable. Patient will be started on heparin. Discussed case with [facility] hospitalist Dr. Garcia agrees to evaluate the patient for admission. Impression & Plan Hypoxia, Pulmonary embolism, Elevated troponin Critical Care Time Critical Care Time: Yes Total Critical Care Time: 87 I have personally spent greater than 87 minutes of critical care time in the direct management of this patient. This includes bedside care, interpretation of diagnostic studies, and testing, discussion with consultants, patient, and family members, and other required patient management activities. This 87 minutes is in excess of all separately billable procedures. Discharge Plan Visit Data Chief Complaint: Respiratory Problems Stated Complaint: LOW OXYGEN LEVEL, HARD TO BREATHE ED Provider: Jose L Mendez Discharge Problem: Hypoxia, Pulmonary embolism, Elevated troponin Patient Disposition: Admitted As Inpatient Forms Stand Alone Forms: My [facility] Prescriptions Prescriptions: No Action atorvastatin 10 mg tablet 10 mg PO DAILY RF: 0 cyanocobalamin (vitamin B-12) [Vitamin B-12] 1,000 mcg Tablet 1,000 mcg PO DAILY RF: 0 lisinopril-hydrochlorothiazide 20-25 mg tablet 1 tab PO DAILY RF: 0 diltiazem HCl 120 mg capsule,extended release 24hr 120 mg PO DAILY RF: 0 dorzolamide-timolol 22.3-6.8 mg/mL drops 1 drp ophthalmic (eye) DIRECTED RF: 0 folic acid 0.8 mg Capsule 0.8 mg PO DAILY RF: 0 Referrals Referrals: Thuy Yousif DO [Primary Care Provider] -
[2021-03-01] MEDS ORDERED: Heparin IV Adult Wt-Based Standard WITH Bolus Protocol IV STA (19:47)
[2021-03-01] MEDS ORDERED: SODIUM CHLORIDE 0.9% 1000ML 1,000 ML IV ONE (20:00)
[2021-03-01] MEDS ORDERED: HEPARIN SOD (PORCINE) 1000 UNIT/ML IV ONE (20:02)
[2021-03-01] MEDS: HEPARIN SODIUM/DEXTROSE 25,000 UNITS/500 ML BAG IV SCH (20:03)
--- NOTE | 2021-03-01 20:18 | History & Physical Report ---
Date of Service March 01, 2021 Assessment & Plan (1) Bilateral pulmonary embolism: (2) Prothrombin gene mutation: (3) Hypertension: (4) HLD (hyperlipidemia): (5) Hypoxia: (6) CKD (chronic kidney disease), stage III: (7) Elevated troponin: Plan: HPI, PMH, PE, med rec completed by Brandee Nation PA-C. Assessment and plan per Dr Cavazos. See addendum. History of Present Illness Chief Complaint: SOB Primary Care Provider: Thuy Yousif DO Patient is 76-year-old female with PMH HTN, dyslipidemia, CKD III, h/o lower extremity DVT, prothrombin gene mutation presented to ER with complaint of shortness of breath x5 days. Patient reports 5 days ago started having generalized weakness and slight shortness of breath. She was concerned she may have COVID 19 so had a outpatient test which was negative. Shortness of breath with exertion has progressed. Reports today had nonproductive cough. Reports episode of dry heaving today. Denies any known fever or chills. Denies chest pain, palpitations, hemoptysis. Was seen at PCPs office today and was found to have pulse ox of 87% on room air, pulse 95 and was referred to ER for further evaluation. Denies diaphoresis, diarrhea, constipation STRONG, dizziness, syncope, vision changes, neck pain, sore throat, choking, otalgia, rhinorrhea, abdominal pain, paresthesias, extremity weakness, extremity edema, rashes, urinary symptoms, recent surgery or trauma, recent immobilization In ER patient afebrile, P: 95, initially 90% on room air and dropped to 86% on room air CTA chest: Extensive bilateral pulmonary emboli with evidence of right heart strain In ER Heparin IV was started Allergies Allergy/AdvReac Type Severity Reaction Status Date / Time No Known Allergies Allergy Mild Verified 03/01/21 18:04 Home Medications Medication Instructions Recorded Confirmed Type atorvastatin 10 mg tablet 10 mg PO DAILY 01/22/21 03/01/21 History cyanocobalamin (vitamin B-12) 1,000 mcg PO DAILY 01/22/21 03/01/21 History 1,000 mcg tablet (Vitamin B-12) diltiazem HCl 120 mg 120 mg PO DAILY 01/22/21 03/01/21 History capsule,extended release 24 hr dorzolamide 22.3 mg-timolol 6.8 1 drp OPHTHALMIC (EYE) DIRECTED 01/22/21 03/01/21 History mg/mL eye drops folic acid 0.8 mg capsule 0.8 mg PO DAILY 01/22/21 03/01/21 History lisinopril 20 1 tab PO DAILY 01/22/21 03/01/21 History mg-hydrochlorothiazide 25 mg tablet Past Med/Surg History Medical History (Updated 03/01/21 @ 22:05 by Brandee Nation PA-C) CKD (chronic kidney disease), stage III HLD (hyperlipidemia) Hypertension No pertinent family history Prothrombin gene mutation Surgical History (Updated 03/01/21 @ 22:00 by Brandee Nation PA-C) History of breast biopsy History of hysterectomy Family History (Updated 03/01/21 @ 22:01 by Brandee Nation PA-C) Father Colorectal cancer Sister Ovarian cancer Mother Stroke Social History (Updated 03/01/21 @ 22:02 by Brandee Nation PA-C) Smoking Status: Never smoker Hx Alcohol Use: Yes Alcohol Intake Frequency: Monthly or Less Hx Substance Use: No Preferred Language: Latvian marital status: Feels Safe at Home: Yes Review of Systems Review of Systems: All systems reviewed & are unremarkable except as noted in HPI & below Physical Exam Physical Exam: General: no acute distress, overweight Head: normocephalic, atraumatic Eyes: PERRL, EOM's intact, conjunctiva non-injected, anicteric ENT: normal inspection external ears, nose, mucous membranes moist Neck: supple, trachea midline Lungs: 94% on 4L NC, able to speak in sentences, +scattered rhonchi CV: tachycardia, irregular rhythm, trace pretibial edema Abd: normal BS, soft, non-tender Ext: no cyanosis, no erythema, no calf tenderness Neuro: A&O x 3, no focal deficits noted, normal affect Skin: warm, dry Results & Data Results & Data ([facility]) Vital Signs (Past 12 Hours) Vital Signs Temp Pulse Pulse Resp BP BP Pulse Ox 03/01/21 20:05 91 H 20 116/81 95 03/01/21 19:25 91 H 19 138/95 94 03/01/21 17:15 95 03/01/21 16:54 84 25 H 122/81 95 03/01/21 16:23 36.8 C 95 H 28 H 97/73 L 90 Laboratory Results Short CBC 03/01/21 Range/Units 16:54 WBC 10.59 (4.8-10.8) K/uL Hgb 13.7 (12.0-16.0) g/dL Hct 42.0 (37-47) % Plt Count 208 (130-400) K/uL BMP 03/01/21 16:54 Sodium 138 Potassium 3.9 Chloride 102 Carbon Dioxide 20 L BUN 32 H Creatinine 1.29 H Glucose 206 H Calcium 9.5 Cardiac Enzymes 03/01/21 Range/Units 16:54 Troponin I 0.10 H* (0-0.04) ng/ml Diagnostic Findings Chest X-Ray 03/01/21 16:42 XR chest 1V portable HISTORY: 76 years-old Female Chest Pain acute atypical chest pain COMPARISON: Chest radiograph 01/22/2021 TECHNIQUE: Portable AP view of the chest FINDINGS: Cardiac silhouette is moderately enlarged. There is no pneumothorax, pleural effusion, airspace consolidation or overt pulmonary edema. There is unchanged mild interstitial coarsening of the lung bases. The bones appear grossly intact. A partially imaged linear metallic density needle shaped structure overlies the left AC joint, possibly external to the patient. IMPRESSION: Cardiomegaly without acute process. ACT 112: Negative or not required by law. The above report was generated using voice recognition software. It may contain grammatical, syntax or spelling errors. Electronically signed by: Hayden Cochran M.D. 03/01/2021 5:18 PM Chest CTA 03/01/21 17:34 CT angio chest PE protocol CT DOSE: 307.04 mGy.cm HISTORY: 76 years-old Female with ro PE. Acute shortness of breath TECHNIQUE: Multiple CTA images of the chest were obtained after the intravenous administration of 117 ml Optiray. Coronal and sagittal MIPS were obtained from the axial data set and were submitted for review. All measurements were obtained according to NASCET criteria. A dose lowering technique was utilized adhering to the principles of ALARA. COMPARISON: Chest radiograph of same day, CT lumbar spine 01/22/2021 FINDINGS: CTA: Moderate cardiomegaly. Trace pericardial effusion. Moderate coronary artery calcifications. The left heart structures are suboptimally opacified secondary to contrast bolus timing. Fusiform dilation of the descending thoracic aorta measures 4.0 x 4.0 cm. Mild associated atherosclerosis. Extensive bilateral pulmonary emboli involve the distal lobar branches extending into the segmental and subsegmental branches within all lobes bilaterally. Straightening of the intraventricular septum. Dilated right heart chambers with reflux of contrast into the IVC and hepatic veins. CT CHEST: Heterogeneity of the thyroid. No adenopathy. The inferior lung bases are only partially imaged. No pneumothorax or definite pleural effusion. Subsegmental left greater than right bibasilar atelectasis with areas of air trapping. There are a few scattered subsegmental subpleural groundglass densities noted throughout the right lung. The central airways appear patent. Tiny hiatal hernia with mild distal esophageal wall thickening. There are a few hypodensities of the left hepatic lobe measuring up to 7 mm which are too small to characterize, possibly cysts. Unremarkable soft tissues. Degenerative changes of the shoulders and spine. Acute 40% superior endplate compression deformity of the T11 vertebral body demonstrates 3 mm retropulsion. Mild paravertebral edema. IMPRESSION: 1. Extensive bilateral pulmonary emboli with evidence of right heart strain. 2. Left greater than right bibasilar atelectasis with areas of mild associated air trapping. 3. Subsegmental scattered subpleural groundglass opacities throughout right lung are suggestive of an infectious or inflammatory pneumonitis. Developing pulmonary infarcts could appear similarly. 4. Acute 40% T11 superior endplate compression deformity with paravertebral edema, new from 01/22/2021. ACT 112: Negative or not required by law. The above report was generated using voice recognition software. It may contain grammatical, syntax or spelling errors. Electronically signed by: Hayden Cochran M.D. 03/01/2021 7:36 PM Supervising Physician Co-Signing Physician Notes IM ATTENDING : Patient seen and examined. History obtained from patient and records. Preceding documentation by Ms. Brandee Nation PA-C reviewed. In addition, LE venous Dopplers initial read as follows In the right proximal femoral vein nonocclusive clot identified. The vessel is mildlyechogenic and noncompressible. There is a nonocclusive DVT seen in the mid to distal popliteal vein. Remainder of the right lower extremityvenous structures are intact. On the left side normal appearance of the venous structures. No masses or fluid collections. Impression:Right-sided acute DVTs as described. No DVT on the left FINAL ASSESSMENT AND PLAN as follows : Acute hypoxemic respiratory failure secondary to recurrent pulmonary thromboembolism Likely hypercoagulable state given history prothrombin gene mutation ARF Hypertension, BP on the lower side Hyperglycemia rule out DM Medical telemetry Supplemental O2 IV heparin Defer discussion regarding home anticoagulation options between patient and AM provider. Patient likely to require lifetime anticoagulation given recurrent clot. Consider Hematology telephone consult. Patient seen by [facility] balance staff staker in 2012 on review of outpatient records Patient expressed interest in NOAC if appropriate. Monitor creatinine response to IVF Appropriate to hold home SULY inhibitor/diuretic until creatinine back to baseline Check hemoglobin A1c DVT prophylaxis with IV heparin Full code Text document was generated using [employer] voice recognition software. It may contain grammatical or spelling errors. Kindly contact undersigned for clarification of any documentation item in question.
[2021-03-02] MEDS ORDERED: ACETAMINOPHEN 325 MG TAB PO PRN (00:42)
[2021-03-02] MEDS: DORZOLAMIDE/TIMOLOL 22.3/6.8MG/ML 10 ML BTL OP SCH ×3 (01:31→20:34)
[2021-03-02 03:06] LABS: Basophils # (auto) 0.02 K/uL (0-0.2); Basophils % (auto) 0.3 %; Eosinophils # (auto) 0.01 K/uL (0-0.5); Eosinophils % (auto) 0.1 %; Hematocrit (blood only) 34.7 % (37-47); Hemoglobin 11.2 g/dL (12.0-16.0); Immature Granulocytes # (auto) 0.01 K/uL (0.00-0.02); Immature Granulocytes % (auto) 0.1 %; Lymphocytes # (auto) 1.89 K/uL (1.2-3.4); Mean Corpuscular Hgb Conc 32.3 g/dL (32-36); Mean Corpuscular Volume 83.6 fL (80-100); Mean Platelet Volume 10.5 fL (7.4-10.4); Monocytes # (auto) 0.61 K/uL (0.11-0.59); Monocytes % (auto) 7.8 %; Neutrophils # (auto) 5.33 K/uL (1.4-6.5); Neutrophils % (auto) 67.7 %; Platelet Count 181 K/uL (130-400); RDW Coefficient of Variation 14.4 % (11.5-14.5); RDW Standard Deviation 43.5 fL (36.4-46.3); Red Blood Count 4.15 M/uL (4.2-5.4); White Blood Count 7.87 K/uL (4.8-10.8)
[2021-03-02 03:28] LABS: Partial Thromboplastin Ratio 4.7
[2021-03-02 03:36] LABS: Partial Thromboplastin Time 123.8 Seconds (21.0-31.0)
[2021-03-02 04:06] LABS: Calcium 8.6 mg/dl (8.5-10.1); Creatinine Clr Calc Pharmacy 41.9 ml/min; Est GFR (African American) 50.1 ml/min; Est GFR (Non-African American) 43.3 ml/min; Potassium 4.2 mmol/L (3.5-5.1)
[2021-03-02 05:52] LABS: Estimated Average Glucose 134 mg/dl; Hemoglobin A1C 6.3 % (4.5-5.6)
--- NOTE | 2021-03-02 07:34 | Ultrasound Report ---
BILATERAL LOWER EXTREMITY VENOUS DOPPLER CLINICAL HISTORY: Pulmonary embolus workup COMPARISON STUDY: Right lower extremity venous Doppler ultrasound March 18, 2012. TECHNIQUE: Sonography of the deep venous system of the bilateral lower extremities was performed. Co mpression and augmentation were evaluated. FINDINGS: Note is made of deep venous thrombus within the right femoral and popliteal veins. No deep venous thrombus within the left lower extremity is noted. IMPRESSION: Deep venous thrombus within the right femoral and popliteal veins. ACT 112: Negative or not required by law. Electronically signed by: To Cooper M.D. 03/02/2021 7:33 AM
[2021-03-02] MEDS: ATORVASTATIN 10 MG TAB PO SCH (07:54)
[2021-03-02] MEDS: CYANOCOBALAMIN 500 MCG TABLET (VITAMIN B-12) PO SCH (07:54)
[2021-03-02] MEDS: dilTIAZem HCL 120 MG CAPCR PO SCH (07:54)
[2021-03-02] MEDS: FOLIC ACID 400 MCG TAB PO SCH (07:54)
[2021-03-02 09:26] LABS: Partial Thromboplastin Ratio 2.1
[2021-03-02 09:33] LABS: Partial Thromboplastin Time 56.4 Seconds (21.0-31.0)
[2021-03-02 16:12] LABS: Partial Thromboplastin Ratio 2.1
--- NOTE | 2021-03-02 18:16 | Electrocardiogram Report ---
Test Reason : Blood Pressure : / mmHG Vent. Rate : 093 BPM Atrial Rate : 087 BPM P-R Int : 000 ms QRS Dur : 100 ms QT Int : 366 ms P-R-T Axes : 000 099 247 degrees QTc Int : 455 ms Atrial fibrillation Rightward axis Diffuse Nonspecific ST and T wave abnormality Abnormal ECG When compared with ECG of 22-JAN-2021 20:12, Atrial fibrillation now present Confirmed by Zaid Gusman ([id number]) on 03/02/2021 6:16:24 PM Referred By: REFERRED SELF Confirmed By:Zaid Gusman
--- NOTE | 2021-03-02 18:18 | Electrocardiogram Report ---
Test Reason : Blood Pressure : / mmHG Vent. Rate : 083 BPM Atrial Rate : 277 BPM P-R Int : 000 ms QRS Dur : 096 ms QT Int : 408 ms P-R-T Axes : 000 101 -79 degrees QTc Int : 479 ms Atrial fibrillation Rightward axis Diffuse Nonspecific ST and T wave abnormality Abnormal ECG When compared with ECG of 01-MAR-2021 16:37, No significant change Confirmed by Zaid Gusman ([id number]) on 03/02/2021 6:17:35 PM Referred By: REFERRED SELF Confirmed By:Zaid Gusman
--- NOTE | 2021-03-02 18:40 | Hospitalist Progress Note ---
Date of Service March 02, 2021 Assessment & Plan (1) Bilateral pulmonary embolism: (2) DVT (deep venous thrombosis): (3) Prothrombin gene mutation: (4) Hypertension: (5) HLD (hyperlipidemia): (6) Hypoxia: (7) CKD (chronic kidney disease), stage III: (8) Elevated troponin: Plan: Present on admission with worsening SOB CTA chest showed extensive bilateral pulmonary emboli with evidence of right heart strain. Left greater than right bibasilar atelectasis with areas of mild associated air trapping. Subsegmental scattered subpleural groundglass opacities throughout right lung are suggestive of an infectious or inflammatory pneumonitis. Developing pulmonary infarcts could appear similarly. Doppler U/S deep venous thrombus within the right femoral and popliteal veins. Starting on IV heparin drip ER physician discussed case with pulmonology/baker pie Dr. Yanes about that said patient is not a tPA candidate since her blood pressure is stable. ECHO done today showed showed right ventricle is severely dilated. Diffuse severe right ventricular hypokinesis. Severe pulmonary hypertension. finding compatible with RV strain. EF 55- 60% Will continue IV heparin drip for now Discussed about warfarin and NOAC. she is interested in the NOAC Will need anticoagulant for possible life long Will need outpatient follow up with hematology Continue oxygen supplement Continue monitor for abnormal bleeding If pt becomes unstable ( BP drops, [place] hypoxia) will notify pulm for possible TPA Continue monitor closely Elevate troponin Mostly due to extensive PE due to RV strain Denies any chest pain Continue IV heparin drip for the PE/DVT HTN BP stable Code status Full code Admission and Anticipated Discharge Date Admission Date: March 01, 2021 Subjective Pt was seen and examined for follow up of sob Lying in bed with her partner at bedside Continue to have SOB and required 2L NC oxygen Denies any chest pain, dizziness and fever Review of Systems Review of Systems: All systems reviewed & are unremarkable except as noted in Subjective Physical Exam Physical Exam: General- No acute distress Head- atraumatic Eyes- PERRL, EOMI, ENT- oropharynx clear Neck- supple, no JVD Lungs- Decrease breath sound Heart- regular rhythm; no murmur Abdomen- normal bowel sounds, soft, nontender Extremities- no calf tenderness, +trace edema in Right LLE Neuro- alert, oriented x 3; PERRL, EOMI; no facial palsy; no dysarthria Skin- warm & dry Results & Data Results & Data ([facility]) Vital Signs (Past 12 Hours) Vital Signs Temp Pulse Pulse Resp BP BP Pulse Ox 03/02/21 17:00 36.8 C 71 69 18 125/71 94 03/02/21 13:03 90 03/02/21 11:19 36.7 C 60 18 119/78 98 03/02/21 07:19 36.8 C 87 25 H 133/87 95
[2021-03-02] MEDS: HEPARIN SODIUM/DEXTROSE 25,000 UNITS/500 ML BAG IV SCH (21:15)
[2021-03-03 03:22] LABS: Appearance Urine Clear (Clear); Bacteria Urine Automated Negative (Negative); Bilirubin Urine Negative (Negative); Blood Urine Negative (Negative); Color Urine Yellow; Epithelial Cell Urine Auto >30 /lpf (0-5); Glucose Urine UA Negative (Negative); Ketones Urine Negative (Negative); Leukocyte Esterase Urine Negative (Negative); Nitrite Urine Negative (Negative); Protein Urine 1+ (Negative); RBC Urine Automated 0-4 /hpf (0-4); Specific Gravity Urine 1.037 (1.000-1.030); Urobilinogen Urine Negative (Negative)
[2021-03-03 07:20] LABS: Hematocrit (blood only) 34.4 % (37-47); Mean Corpuscular Hemoglobin 27.1 pg (25-34); Mean Corpuscular Volume 84.7 fL (80-100); Mean Platelet Volume 11.1 fL (7.4-10.4); Platelet Count 202 K/uL (130-400); RDW Coefficient of Variation 14.7 % (11.5-14.5); Red Blood Count 4.06 M/uL (4.2-5.4); White Blood Count 7.31 K/uL (4.8-10.8)
[2021-03-03 07:44] LABS: BUN Creatinine Ratio 32.9 (10-20); Calcium 8.5 mg/dl (8.5-10.1); Creatinine Clr Calc Pharmacy 61.3 ml/min; Est GFR (African American) 79.4 ml/min; Est GFR (Non-African American) 68.5 ml/min; Potassium 3.3 mmol/L (3.5-5.1)
[2021-03-03 07:45] LABS: Partial Thromboplastin Ratio 1.8
[2021-03-03 07:47] LABS: Partial Thromboplastin Time 48.3 Seconds (21.0-31.0)
[2021-03-03] MEDS: dilTIAZem HCL 120 MG CAPCR PO SCH (08:34)
[2021-03-03] MEDS: ATORVASTATIN 10 MG TAB PO SCH (08:35)
[2021-03-03] MEDS: FOLIC ACID 400 MCG TAB PO SCH (08:35)
[2021-03-03] MEDS: CYANOCOBALAMIN 500 MCG TABLET (VITAMIN B-12) PO SCH (08:35)
[2021-03-03] MEDS: DORZOLAMIDE/TIMOLOL 22.3/6.8MG/ML 10 ML BTL OP SCH ×2 (08:35→20:34)
--- NOTE | 2021-03-03 17:05 | Cardiology Consultation ---
Date of Consultation March 03, 2021 Assessment & Plan (1) Paroxysmal atrial fibrillation: (2) Bilateral pulmonary embolism: (3) Prothrombin gene mutation: (4) DVT (deep venous thrombosis): 76-year-old female with previously noted heterozygosity for the prothrombin gene mutation, completed a year of anticoagulation after previous right lower extremity DVT ([id number]) Presents with shortness of breath and findings of recurrent right lower extremity DVT, and bilateral (submassive) pulmonary embolism. By CT and echocardiographic criteria, right ventricular strain pattern noted (normal right heart function noted on previous remote echo dating back to 2006), severe pulmonary hypertension on current echo (presumed new and secondary to RV strain).Mild troponin I elevation, abnormal EKG with repolarization changes in the precordial leads all consistent with RV strain. The patient was in a rate controlled atrial fibrillation at the time of presentation on 03/01/2021, with sinus rhythm documented January,. At the time of her echocardiogram, 03/02/2021, sinus rhythm in the 60s noted. She reverted back to rate controlled atrial fibrillation 8:38 AM 03/03/2021. She is asymptomatic from an arrhythmia standpoint. She is already on diltiazem for a past history of arrhythmia, per description it sounds like it may have been due to short episodes of past SVT. Recommend ongoing treatment with her prior to home dose of diltiazem CD120 mg daily, as well as anticoagulation. Her most recent blood pressure measurement was 134/80. Given her hemodynamic stability with lack of hypotension, thrombolytic therapy is not indicated. If she develops hemodynamic compromise however this will need to be reassessed. Recommend ongoing treatment with heparin, and transition to an oral agent after several days. Patient is favoring initiation of a direct oral anticoagulant such as Eliquis. Lifelong anticoagulation recommended given her recurrent event. Oral potassium supplementation has been replaced, and a repeat metabolic panel has been ordered for tomorrow. She was counseled with sharing her history with her children as this is an important part of their family medical history. Dr Roberson is rounding on 03/04/21, please call with questions or concerns. History of Present Illness Attending Physician: Cody Crawford MD History of Present Illness Edgar Correa is a 76 year old female seen in cardiology consultation per the request of Dr. Crawford for the evaluation of newly recognized atrial fibrillation. The patient is seen and examined in room 280-2. She is accompanied by her , Hussein, who is an [facility]. The patient describes onset of significant shortness of breath 4 days prior to hospitalization. She noted becoming progressively short of breath with activities especially such as climbing stairs. She notes no recent leg pain or tenderness. A CT angiogram performed in the emergency department on 03/01/2021 revealed extensive bilateral pulmonary emboli involving the distal lobar branches and extending into the segmental and subsegmental branches within all lobes bilaterally, as documented in the radiology report. There is evidence of right heart strain by CT criteria with described flattening of the interventricular septum and dilatation of the right heart chambers with reflux of contrast into the inferior vena cava and hepatic veins. Moderate coronary artery calcifications also noted as well as fusiform dilatation of the descending thoracic aorta measuring 4 x 4 cm. Lower extremity venous Doppler study revealed DVT within the right femoral and popliteal veins. Echocardiogram performed yesterday 03/02/2021 and reviewed independently revealed evidence of right ventricular strain with severe right ventricular chamber dilatation and diffuse right ventricular hypokinesis with sparing of the (RV apex Ponce's sign), and severe pulmonary hypertension, estimated RV systolic pressure 67 mmHg. The patient is currently asymptomatic with the exception of noting cough. Oxygen saturation is 95% on 4 L. She notes a bit more of a cough today. Denies lightheadedness or dizziness. Past Cardiac / Vascular History: Patient describes history of subjective palpitations and around when she had her 3 children. She was assessed by cardiology back then, however this assessment predates the computer records. She has been maintained on chronic diltiazem, with no recent subjective palpitations. She was diagnosed with a right lower extremity DVT (lower extremity venous duplex performed [facility]) 10/24/2011. This apparently occurred in the setting of a previous long car trip. She underwent a hypercoagulable work-up, was found to be heterozygous for the prothrombin gene mutation. She was seen by hematology at that time, and anticoagulation was discontinued in August,. Her most recent mammogram took place in November, with report describing no mammographic evidence of malignancy. Her most recent colonoscopy took place in September, with several polyps removed, repeat screening recommended in 3 to 5 years per the report. Family History: She describes history of strokes in her mother. No history of blood clots in her sisters. She has 3 children including a daughter age 36. Social History: Retired, worked in a restaurant, and in retail , , Hussein Non smoker Allergies Allergy/AdvReac Type Severity Reaction Status Date / Time No Known Allergies Allergy Mild Verified 03/01/21 18:04 Home Medications Medication Instructions Recorded Confirmed Type atorvastatin 10 mg tablet 10 mg PO DAILY 01/22/21 03/01/21 History cyanocobalamin (vitamin B-12) 1,000 mcg PO DAILY 01/22/21 03/01/21 History 1,000 mcg tablet (Vitamin B-12) diltiazem HCl 120 mg 120 mg PO DAILY 01/22/21 03/01/21 History capsule,extended release 24 hr dorzolamide 22.3 mg-timolol 6.8 1 drp OPHTHALMIC (EYE) DIRECTED 01/22/21 03/01/21 History mg/mL eye drops folic acid 0.8 mg capsule 0.8 mg PO DAILY 01/22/21 03/01/21 History lisinopril 20 1 tab PO DAILY 01/22/21 03/01/21 History mg-hydrochlorothiazide 25 mg tablet Patient History Medical History CKD (chronic kidney disease), stage III HLD (hyperlipidemia) Hypertension No pertinent family history Prothrombin gene mutation Surgical History History of breast biopsy History of hysterectomy Family History Father Colorectal cancer Sister Ovarian cancer Mother Stroke Social History Smoking Status: Never smoker Second Hand Exposure: No; Do You Dip or Chew Tobacco: No; Tobacco Cessation Education Requested by Patient: No Hx Alcohol Use: Yes Alcohol Intake Frequency: Monthly or Less Hx Substance Use: No Preferred Language: Norwegian Communication Ability: Effective Podiatric Medicine Doctor Required: No Beliefs That Will Affect Care: None marital status: Current Living Situation: Spouse Other Information That Helps Us Care for You: No Feels Safe at Home: Yes Safety Concerns: Feels Safe At This Time Assistive Devices: Glasses and Oxygen - Continuous Review of Systems Review of Systems: All systems reviewed & are unremarkable except as noted in HPI & below Physical Exam Physical Exam: Temp Pulse Resp BP Pulse Ox 36.8 C 74 16 134/80 95 03/03/21 10:43 03/03/21 10:43 03/03/21 10:43 03/03/21 10:43 03/03/21 10:43 Constitutional: no acute distress Respiratory: normal respiratory effort, lungs clear to auscultation Cardiovascular: Rate/Rhythm: not tachycardic and not irregularly irregular Heart Sounds: no murmur Extremities: no edema Gastrointestinal (Abdomen): normal bowel sounds, soft, nontender, no hepatosplenomegaly Neurologic: PERRL, EOMI, accommodation nl, no face palsy, no dysarthria Results & Data ([facility]) Vital Signs (Past 12 Hours) Vital Signs Temp Pulse Pulse Resp BP Pulse Ox 03/03/21 10:43 36.8 C 74 16 134/80 95 03/03/21 08:00 59 L 03/03/21 07:15 36.4 C L 63 15 138/82 96 Laboratory Results Coagulation 03/03/21 Range/Units 06:54 APTT 48.3 H* (21.0-31.0) Seconds CBC 03/03/21 Range/Units 06:54 WBC 7.31 (4.8-10.8) K/uL RBC 4.06 L (4.2-5.4) M/uL Hgb 11.0 L (12.0-16.0) g/dL Hct 34.4 L (37-47) % Plt Count 202 (130-400) K/uL Comprehensive Metabolic Panel 03/03/21 Range/Units 06:54 Sodium 140 (136-145) mmol/L Potassium 3.3 L (3.5-5.1) mmol/L Chloride 108 H (98-107) mmol/L Carbon Dioxide 26 (21-32) mmol/L BUN 27 H (6-23) mg/dl Creatinine 0.82 D (0.6-1.2) mg/dl Glucose 107 H (70-99) mg/dl Calcium 8.5 (8.5-10.1) mg/dl Intake and Output 03/03/21 03/03/21 03/03/21 06:59 14:59 22:59 Intake Total 500 / 860 360 / 860 Output Total 300 / 300 225 / 225 Balance -300 / 980.667 275 / 635 360 / 635 Intake: IV 360 / 360 Heparin Sodium/Dextrose 25,000 360 / 360 units In 500 ml @ 1,000 UNITS/ HR 20 mls/hr IV .Q24H [facility] Rx#: [id number] Oral 500 / 500 Output: Urine 300 / 300 225 / 225 Other: Other Intake Source sips Diagnostic Findings EKG performed this afternoon 03/03/2021 at 1525 revealed atrial fibrillation at 76 bpm with nonspecific inferior repolarization changes, T wave inversions noted in the precordial leads. -Compared to the previous 2 tracings performed on 03/01/2021, there has been no significant interval change. -Compared to the prior tracing dated 01/22/2021, atrial fibrillation with controlled ventricular response has replaced sinus rhythm, nonspecific T wave changes noted at that time.
[2021-03-03] MEDS ORDERED: POTASSIUM CHLORIDE CRTAB 20 MEQ TABCR PO STA (17:24)
--- NOTE | 2021-03-03 20:51 | Electrocardiogram Report ---
Test Reason : Blood Pressure : / mmHG Vent. Rate : 076 BPM Atrial Rate : 080 BPM P-R Int : 000 ms QRS Dur : 092 ms QT Int : 442 ms P-R-T Axes : 000 114 210 degrees QTc Int : 497 ms Atrial fibrillation Right axis deviation Prolonged QT Abnormal ECG When compared with ECG of 01-MAR-2021 17:13, Minimal criteria for Inferior infarct are no longer Present Confirmed by Riley Dwyer ([id number]) on 03/03/2021 8:51:10 PM Referred By: REFERRED SELF Confirmed By:Riley Dwyer
--- NOTE | 2021-03-03 21:15 | Hospitalist Progress Note ---
Date of Service March 03, 2021 Assessment & Plan (1) Bilateral pulmonary embolism: (2) DVT (deep venous thrombosis): (3) Prothrombin gene mutation: (4) Hypertension: (5) HLD (hyperlipidemia): (6) Hypoxia: (7) CKD (chronic kidney disease), stage III: (8) Elevated troponin: Plan: Present on admission with worsening SOB CTA chest showed extensive bilateral pulmonary emboli with evidence of right heart strain. Left greater than right bibasilar atelectasis with areas of mild associated air trapping. Subsegmental scattered subpleural groundglass opacities throughout right lung are suggestive of an infectious or inflammatory pneumonitis. Developing pulmonary infarcts could appear similarly. Doppler U/S deep venous thrombus within the right femoral and popliteal veins. Starting on IV heparin drip ER physician discussed case with pulmonology/perianesthesia manager Dr. Yanes about that said patient is not a tPA candidate since her blood pressure is stable. ECHO done today showed showed right ventricle is severely dilated. Diffuse severe right ventricular hypokinesis. Severe pulmonary hypertension. finding compatible with RV strain. EF 55- 60% Continue IV heparin drip for now Discussed about warfarin and NOAC. she is interested in the NOAC Will need anticoagulant for possible life long Will need outpatient follow up with hematology Continue oxygen supplement Continue monitor for abnormal bleeding If pt becomes unstable ( BP drops, [place] hypoxia) will notify pulm for possible TPA Continue monitor closely Atrial fibrillation Patient with [place] with rate control Continue Cardizem home dose Cardiology consult Already on heparin drip for PE we will keep potassium above 4 and magnesium above 2 Elevate troponin Mostly due to extensive PE due to RV strain Denies any chest pain Continue IV heparin drip for the PE/DVT Hypokalemia Potassium 3.3 today Potassium replaced Continue monitor BMP HTN BP stable Code status Full code Disposition We will discharge when medically stable Admission and Anticipated Discharge Date Admission Date: March 01, 2021 Subjective Pt was seen and examined for follow up of sob due to bilateral PE. Lying in bed with no acute distress eating her breakfast and watching TV She said that her breathing much better today Spoke to today and provided with update and answered all his questions Denies any chest pain, dizziness and fever Review of Systems Review of Systems: All systems reviewed & are unremarkable except as noted in Subjective Physical Exam Physical Exam: General- No acute distress Head- atraumatic Eyes- PERRL, EOMI, ENT- oropharynx clear Neck- supple, no JVD Lungs- Decrease breath sound Heart- irregular rhythm; no murmur Abdomen- normal bowel sounds, soft, nontender Extremities- no calf tenderness Neuro- alert, oriented x 3; PERRL, EOMI; no facial palsy; no dysarthria Skin- warm & dry Results & Data Results & Data ([facility]) Vital Signs (Past 12 Hours) Vital Signs Temp Pulse Pulse Resp BP Pulse Ox 03/03/21 19:42 36.9 C 83 18 122/83 93 03/03/21 10:43 36.8 C 74 16 134/80 95
[2021-03-04] MEDS: HEPARIN SODIUM/DEXTROSE 25,000 UNITS/500 ML BAG IV SCH (00:45)
[2021-03-04] MEDS: CYANOCOBALAMIN 500 MCG TABLET (VITAMIN B-12) PO SCH (08:05)
[2021-03-04] MEDS: dilTIAZem HCL 120 MG CAPCR PO SCH (08:05)
[2021-03-04] MEDS: DORZOLAMIDE/TIMOLOL 22.3/6.8MG/ML 10 ML BTL OP SCH ×2 (08:05→20:59)
[2021-03-04] MEDS: ATORVASTATIN 10 MG TAB PO SCH (08:05)
[2021-03-04] MEDS: FOLIC ACID 400 MCG TAB PO SCH (08:05)
[2021-03-04 10:14] LABS: Basophils # (auto) 0.03 K/uL (0-0.2); Basophils % (auto) 0.5 %; Eosinophils # (auto) 0.11 K/uL (0-0.5); Eosinophils % (auto) 1.8 %; Hematocrit (blood only) 37.2 % (37-47); Hemoglobin 11.9 g/dL (12.0-16.0); Immature Granulocytes # (auto) 0.01 K/uL (0.00-0.02); Immature Granulocytes % (auto) 0.2 %; Lymphocytes % (auto) 25.2 %; Mean Corpuscular Hemoglobin 27.1 pg (25-34); Mean Corpuscular Volume 84.7 fL (80-100); Mean Platelet Volume 11.6 fL (7.4-10.4); Monocytes # (auto) 0.26 K/uL (0.11-0.59); Monocytes % (auto) 4.4 %; Neutrophils # (auto) 4.04 K/uL (1.4-6.5); Neutrophils % (auto) 67.9 %; Platelet Count 244 K/uL (130-400); RDW Coefficient of Variation 14.7 % (11.5-14.5); RDW Standard Deviation 45.1 fL (36.4-46.3); Red Blood Count 4.39 M/uL (4.2-5.4); White Blood Count 5.95 K/uL (4.8-10.8)
[2021-03-04 10:37] LABS: Partial Thromboplastin Ratio 1.8
[2021-03-04 10:41] LABS: BUN Creatinine Ratio 23.1 (10-20); Calcium 8.9 mg/dl (8.5-10.1); Creatinine Clr Calc Pharmacy 55.3 ml/min; Est GFR (Non-African American) 60.4 ml/min; Magnesium 1.8 mg/dl (1.7-2.4); Potassium 3.6 mmol/L (3.5-5.1)
[2021-03-04 10:44] LABS: Partial Thromboplastin Time 46.3 Seconds (21.0-31.0)
--- NOTE | 2021-03-04 13:44 | Cardiology Progress Note ---
Date of Service March 04, 2021 Assessment & Plan (1) Paroxysmal atrial fibrillation: (2) Bilateral pulmonary embolism: (3) Prothrombin gene mutation: (4) DVT (deep venous thrombosis): Plan: 76-year-old female with previously noted heterozygosity for the prothrombin gene mutation, completed a year of anticoagulation after previous right lower extremity DVT ([id number]) Presents with shortness of breath and findings of recurrent right lower extremity DVT, and bilateral (submassive) pulmonary embolism. By CT and echocardiographic criteria, right ventricular strain pattern noted (normal right heart function noted on previous remote echo dating back to 2006), severe pulmonary hypertension on current echo (presumed new and secondary to RV strain).Mild troponin I elevation, abnormal EKG with repolarization changes in the precordial leads all consistent with RV strain. The patient was in a rate controlled atrial fibrillation at the time of presentation on 03/01/2021, with sinus rhythm documented January,. At the time of her echocardiogram, 03/02/2021, sinus rhythm in the 60s noted. She reverted back to rate controlled atrial fibrillation 8:38 AM 03/03/2021. She is asymptomatic from an arrhythmia standpoint. She is already on diltiazem for a past history of arrhythmia, per description it sounds like it may have been due to short episodes of past SVT. Recommend ongoing treatment with her prior to home dose of diltiazem CD120 mg daily, as well as anticoagulation. She has voiced her preference for Eliquis. Admission and Anticipated Discharge Date Admission Date: March 01, 2021 Subjective Patient seen and examined, chart reviewed. Upright in bed. States that her breathing is significantly improved since admission. Denies chest pain, palpitations or lightheadedness. Telemetry reviewed: Normal sinus rhythm Review of Systems Review of Systems: All systems reviewed & are unremarkable except as noted in HPI & below Physical Exam Physical Exam: General: Awake, alert and oriented x 3. No acute distress. HEENT: Normocephalic, atraumatic. Pupils equal, round and reactive to light and accommodation. Extraocular muscles are intact. Anicteric sclera. Moist mucous membranes. Neck: No JVD. No bruit. Cardiovascular: Regular. Positive S-4. Normal S-1 and S-2. No S-3. 3/6 holosystolic ejection murmur, 5th intercostal space, mid-clavicular line without radiation. No rubs. Pulmonary: Clear to auscultation bilaterally. No rales, rhonchi, or wheezing. Abdomen: Bowel sounds x 4, soft. No rebound, guarding or tenderness. No o rganomegaly. Extremities: No clubbing, cyanosis or edema. +2 pedal pulses bilaterally. Skin: Warm and dry. Results & Data ([facility]) Vital Signs (Past 12 Hours) Vital Signs Temp Pulse Pulse Resp BP Pulse Ox Pulse Ox 03/04/21 12:42 94 03/04/21 10:58 36.4 C L 76 18 119/81 98 03/04/21 08:00 72 03/04/21 07:51 36.7 C 73 18 121/86 97 03/04/21 03:07 36.6 C 80 18 127/80 97 Pulse Ox Pulse Ox 03/04/21 12:42 98 91 03/04/21 10:58 03/04/21 08:00 03/04/21 07:51 03/04/21 03:07
[2021-03-04] MEDS ORDERED: POTASSIUM CHLORIDE CRTAB 20 MEQ TABCR PO STA (18:01)
[2021-03-04] MEDS ORDERED: MAGNESIUM OXIDE 400 MG TAB PO ONE (18:05)
--- NOTE | 2021-03-04 22:27 | Hospitalist Progress Note ---
Date of Service March 04, 2021 Assessment & Plan (1) Bilateral pulmonary embolism: (2) DVT (deep venous thrombosis): (3) Prothrombin gene mutation: (4) Hypertension: (5) HLD (hyperlipidemia): (6) Hypoxia: (7) CKD (chronic kidney disease), stage III: (8) Elevated troponin: Plan: Present on admission with worsening SOB CTA chest showed extensive bilateral pulmonary emboli with evidence of right heart strain. Left greater than right bibasilar atelectasis with areas of mild associated air trapping. Subsegmental scattered subpleural groundglass opacities throughout right lung are suggestive of an infectious or inflammatory pneumonitis. Developing pulmonary infarcts could appear similarly. Doppler U/S deep venous thrombus within the right femoral and popliteal veins. Starting on IV heparin drip ER physician discussed case with pulmonology/coal hauler operator Dr. Yanes about that said patient is not a tPA candidate since her blood pressure is stable. ECHO done today showed showed right ventricle is severely dilated. Diffuse severe right ventricular hypokinesis. Severe pulmonary hypertension. finding compatible with RV strain. EF 55- 60% Continue IV heparin drip for now Discussed about warfarin and NOAC. she is interested in the NOAC Will consider to start on Eliquis in AM Will need anticoagulant for possible life long outpatient follow up with hematology Continue oxygen supplement Continue monitor for abnormal bleeding If pt becomes unstable ( BP drops, [place] hypoxia) will notify pulm for possible TPA Continue monitor closely Atrial fibrillation Patient with [place] with rate control Continue Cardizem home dose Cardiology consult Already on heparin drip for PE we will keep potassium above 4 and magnesium above 2 Elevate troponin Mostly due to extensive PE due to RV strain Denies any chest pain Continue IV heparin drip for the PE/DVT Hypokalemia Potassium 3.3 today Potassium replaced Continue monitor BMP HTN BP stable Code status Full code Disposition We will discharge when medically stable Admission and Anticipated Discharge Date Admission Date: March 01, 2021 Subjective Pt was seen and examined for follow up of sob due to bilateral PE. Lying in bed with no acute distress watching TV She said that her breathing continue to improve Denies any chest pain, dizziness, palpitation and SOB Review of Systems Review of Systems: All systems reviewed & are unremarkable except as noted in Subjective Physical Exam Physical Exam: General- No acute distress Head- atraumatic Eyes- PERRL, EOMI, ENT- oropharynx clear Neck- supple, no JVD Lungs- Decrease breath sound Heart- irregular rhythm; Abdomen- normal bowel sounds, soft, nontender Extremities- no calf tenderness Neuro- alert, oriented x 3; PERRL, EOMI; no facial palsy; no dysarthria Skin- warm & dry Results & Data Results & Data ([facility]) Vital Signs (Past 12 Hours) Vital Signs Temp Pulse Pulse Pulse Resp BP Pulse Ox 03/04/21 19:39 36.6 C 82 18 142/89 H 95 03/04/21 16:00 77 03/04/21 14:28 36.3 C L 83 20 168/98 H 92 03/04/21 12:42 03/04/21 10:58 36.4 C L 76 18 119/81 98 Pulse Ox Pulse Ox Pulse Ox 03/04/21 19:39 03/04/21 16:00 03/04/21 14:28 03/04/21 12:42 94 98 91 03/04/21 10:58
[2021-03-05] MEDS: HEPARIN SODIUM/DEXTROSE 25,000 UNITS/500 ML BAG IV SCH (03:22)
[2021-03-05 06:44] LABS: Partial Thromboplastin Ratio 1.8
[2021-03-05 06:52] LABS: Partial Thromboplastin Time 47.2 Seconds (21.0-31.0)
[2021-03-05 09:27] LABS: BUN Creatinine Ratio 30.1 (10-20); Calcium 8.6 mg/dl (8.5-10.1); Creatinine Clr Calc Pharmacy 68.7 ml/min; Est GFR (African American) 91.4 ml/min; Est GFR (Non-African American) 78.9 ml/min
[2021-03-05] MEDS: FOLIC ACID 400 MCG TAB PO SCH (09:35)
[2021-03-05] MEDS: dilTIAZem HCL 120 MG CAPCR PO SCH (09:35)
[2021-03-05] MEDS: CYANOCOBALAMIN 500 MCG TABLET (VITAMIN B-12) PO SCH (09:35)
[2021-03-05] MEDS: ATORVASTATIN 10 MG TAB PO SCH (09:36)
[2021-03-05] MEDS: DORZOLAMIDE/TIMOLOL 22.3/6.8MG/ML 10 ML BTL OP SCH ×2 (09:36→20:00)
--- NOTE | 2021-03-05 13:11 | Cardiology Progress Note ---
Date of Service March 05, 2021 Assessment & Plan (1) Paroxysmal atrial fibrillation: (2) Bilateral pulmonary embolism: (3) Prothrombin gene mutation: (4) DVT (deep venous thrombosis): Plan: 76-year-old female with previously noted heterozygosity for the prothrombin gene mutation, completed a year of anticoagulation after previous right lower extremity DVT ([id number]) Presents with shortness of breath and findings of recurrent right lower extremity DVT, and bilateral (submassive) pulmonary embolism. By CT and echocardiographic criteria, right ventricular strain pattern noted (normal right heart function noted on previous remote echo dating back to 2006), severe pulmonary hypertension on current echo (presumed new and secondary to RV strain).Mild troponin I elevation, abnormal EKG with repolarization changes in the precordial leads all consistent with RV strain. The patient was in a rate controlled atrial fibrillation at the time of presentation on 03/01/2021, with sinus rhythm documented January,. At the time of her echocardiogram, 03/02/2021, sinus rhythm in the 60s noted. She reverted back to rate controlled atrial fibrillation 8:38 AM 03/03/2021. She is asymptomatic from an arrhythmia standpoint. She is already on diltiazem for a past history of arrhythmia, per description it sounds like it may have been due to short episodes of past SVT. Recommend ongoing treatment with her prior to home dose of diltiazem CD120 mg daily, as well as anticoagulation. She has voiced her preference for Eliquis. Okay to hold diltiazem should she remain as difficultly bradycardic. Admission and Anticipated Discharge Date Admission Date: March 01, 2021 Subjective Patient seen and examined, chart reviewed. States that her breathing is doing well. Denies chest pain or palpitations. Telemetry reviewed: Spontaneously converted to normal sinus rhythm/sinus bradycardia. Review of Systems Review of Systems: All systems reviewed & are unremarkable except as noted in HPI & below Physical Exam Physical Exam: General: Awake, alert and oriented x 3. No acute distress. HEENT: Normocephalic, atraumatic. Pupils equal, round and reactive to light and accommodation. Extraocular muscles are intact. Anicteric sclera. Moist mucous membranes. Neck: No JVD. No bruit. Cardiovascular: Regular. Positive S-4. Normal S-1 and S-2. No S-3. 3/6 holosystolic ejection murmur, 5th intercostal space, mid-clavicular line without radiation. No rubs. Pulmonary: Clear to auscultation bilaterally. No rales, rhonchi, or wheezing. Abdomen: Bowel sounds x 4, soft. No rebound, guarding or tenderness. No organomegaly. Extremities: No clubbing, cyanosis or edema. +2 pedal pulses bilaterally. Skin: Warm and dry. Results & Data ([facility]) Vital Signs (Past 12 Hours) Vital Signs Temp Pulse Pulse Resp BP BP Pulse Ox 03/05/21 10:00 36.4 C L 51 L 20 122/74 98 03/05/21 09:37 93 03/05/21 07:00 36.5 C 72 18 144/89 H 95 03/05/21 03:10 36.5 C 76 18 154/91 H 94
--- NOTE | 2021-03-05 18:17 | Hospitalist Progress Note ---
Date of Service March 05, 2021 Assessment & Plan (1) Bilateral pulmonary embolism: (2) DVT (deep venous thrombosis): (3) Prothrombin gene mutation: (4) Hypertension: (5) HLD (hyperlipidemia): (6) Hypoxia: (7) CKD (chronic kidney disease), stage III: (8) Elevated troponin: Plan: Present on admission with worsening SOB CTA chest showed extensive bilateral pulmonary emboli with evidence of right heart strain. Left greater than right bibasilar atelectasis with areas of mild associated air trapping. Subsegmental scattered subpleural groundglass opacities throughout right lung are suggestive of an infectious or inflammatory pneumonitis. Developing pulmonary infarcts could appear similarly. Doppler U/S deep venous thrombus within the right femoral and popliteal veins. Starting on IV heparin drip ER physician discussed case with pulmonology/bereavement program coordinator Dr. Yanes about that said patient is not a tPA candidate since her blood pressure is stable. ECHO done today showed showed right ventricle is severely dilated. Diffuse severe right ventricular hypokinesis. Severe pulmonary hypertension. finding compatible with RV strain. EF 55- 60% Currently on IV heparin drip If pt becomes unstable ( BP drops, [place] hypoxia) will notify pulm for possible TPA Discussed about warfarin and NOAC. she is interested in the NOAC Will transition to Eliquis tonight. Cost for eliquis is $47. Pt said that it is affordable Will need anticoagulant for possible life long Outpatient follow up with hematology Continue monitor for abnormal bleeding Will get a 2 step in am Atrial fibrillation Patient with A. fib with rate control Converted to NSR this morning Telemonitor showed NSR/Bradycardia Continue Cardizem home dose. Cardiology on board case discussed with cardiology that recommended to continue current management. If bradycardia worsening, might consider to hold the cardizem Already on heparin drip for PE Continue IV heparin drip for the PE/DVT, will transition to Eliquis we will keep potassium above 4 and magnesium above 2 Elevate troponin Mostly due to extensive PE due to RV strain Denies any chest pain Continue IV heparin drip for the PE/DVT, will transition to Eliquis Hypokalemia Potassium 4.0 today Continue monitor BMP HTN BP stable Code status Full code Disposition Will get a 2 step exercise tomorrow Possible discharge in am Admission and Anticipated Discharge Date Admission Date: March 01, 2021 Subjective Pt was seen and examined for follow up of sob due to bilateral PE. Lying in bed with no acute distress watching TV She was weaned off oxygen and saturated well on RA Telemonitor showed NSR She said that she feels much better She would like to go home today Denies any chest pain, dizziness, palpitation and SOB Review of Systems Review of Systems: All systems reviewed & are unremarkable except as noted in Subjective Physical Exam Physical Exam: General- No acute distress Head- atraumatic Eyes- PERRL, EOMI, ENT- oropharynx clear Neck- supple, no JVD Lungs- Decrease breath sound Heart- irregular rhythm; Abdomen- normal bowel sounds, soft, nontender Extremities- no calf tenderness Neuro- alert, oriented x 3; PERRL, EOMI; no facial palsy; no dysarthria Skin- warm & dry Results & Data Results & Data ([facility]) Vital Signs (Past 12 Hours) Vital Signs Temp Pulse Pulse Pulse Resp BP BP 03/05/21 17:26 03/05/21 17:25 03/05/21 16:00 50 L 03/05/21 15:00 36.3 C L 54 L 18 150/92 H 03/05/21 14:20 50 L 03/05/21 11:43 38 L 03/05/21 11:38 38 L 03/05/21 10:00 36.4 C L 51 L 20 122/74 03/05/21 09:37 03/05/21 08:00 70 03/05/21 07:00 36.5 C 72 18 144/89 H Pulse Ox 03/05/21 17:26 93 03/05/21 17:25 88 L 03/05/21 16:00 03/05/21 15:00 92 03/05/21 14:20 03/05/21 11:43 03/05/21 11:38 03/05/21 10:00 98 03/05/21 09:37 93 03/05/21 08:00 03/05/21 07:00 95
[2021-03-05] MEDS: APIXABAN 5 MG TABLET PO SCH (20:00)
[2021-03-06] MEDS: APIXABAN 5 MG TABLET PO SCH (07:51)
[2021-03-06] MEDS: dilTIAZem HCL 120 MG CAPCR PO SCH (07:51)
[2021-03-06] MEDS: CYANOCOBALAMIN 500 MCG TABLET (VITAMIN B-12) PO SCH (07:51)
[2021-03-06] MEDS: FOLIC ACID 400 MCG TAB PO SCH (07:51)
[2021-03-06] MEDS: DORZOLAMIDE/TIMOLOL 22.3/6.8MG/ML 10 ML BTL OP SCH (07:52)
[2021-03-06] MEDS: ATORVASTATIN 10 MG TAB PO SCH (07:52)
[2021-03-06] MEDS ORDERED: SODIUM CHLORIDE 0.65% NA SOLN 45 ML (OCEAN) PRN (08:01)
--- NOTE | 2021-03-06 16:29 | Discharge Summary ---
Date of Service March 06, 2021 Admission HPI Per Admitting Provider Patient is 76-year-old female with PMH HTN, dyslipidemia, CKD III, h/o lower extremity DVT, prothrombin gene mutation presented to ER with complaint of shortness of breath x5 days. Patient reports 5 days ago started having generalized weakness and slight shortness of breath. She was concerned she may have COVID 19 so had a outpatient test which was negative. Shortness of breath with exertion has progressed. Reports today had nonproductive cough. Reports episode of dry heaving today. Denies any known fever or chills. Denies chest pain, palpitations, hemoptysis. Was seen at PCPs office today and was found to have pulse ox of 87% on room air, pulse 95 and was referred to ER for further evaluation. Denies diaphoresis, diarrhea, constipation STRONG, dizziness, syncope, vision changes, neck pain, sore throat, choking, otalgia, rhinorrhea, abdominal pain, paresthesias, extremity weakness, extremity edema, rashes, urinary symptoms, recent surgery or trauma, recent immobilization In ER patient afebrile, P: 95, initially 90% on room air and dropped to 86% on room air CTA chest: Extensive bilateral pulmonary emboli with evidence of right heart strain In ER Heparin IV was started Admission Exam Per Admitting Provider General: no acute distress, overweight Head: normocephalic, atraumatic Eyes: PERRL, EOM's intact, conjunctiva non-injected, anicteric ENT: normal inspection external ears, nose, mucous membranes moist Neck: supple, trachea midline Lungs: 94% on 4L NC, able to speak in sentences, +scattered rhonchi CV: tachycardia, irregular rhythm, trace pretibial edema Abd: normal BS, soft, non-tender Ext: no cyanosis, no erythema, no calf tenderness Neuro: A&O x 3, no focal deficits noted, normal affect Skin: warm, dry Principal Diagnosis (1) Bilateral pulmonary embolism: (2) DVT (deep venous thrombosis): (3) Prothrombin gene mutation: (4) Hypertension: (5) HLD (hyperlipidemia): (6) Hypoxia: (7) CKD (chronic kidney disease), stage III: (8) Elevated troponin: Discharge Exam General- No acute distress Head- atraumatic Eyes- PERRL, EOMI, ENT- oropharynx clear Neck- supple, no JVD Lungs- Decrease breath sound Heart- irregular rhythm; Abdomen- normal bowel sounds, soft, nontender Extremities- no calf tenderness Neuro- alert, oriented x 3; PERRL, EOMI; no facial palsy; no dysarthria Skin- warm & dry Discharge Data Allergies Allergy/AdvReac Type Severity Reaction Status Date / Time No Known Allergies Allergy Mild Verified 03/01/21 18:04 Consultations 03/01/21 19:51 ED Decision to Admit Stat 03/03/21 16:09 Consult Cardiology Routine Ordered Studies 03/01/21 17:34 CT angio chest PE protocol Stat 03/01/21 22:19 US venous doppler LE BI Urgent BILATERAL LOWER EXTREMITY VENOUS DOPPLER CLINICAL HISTORY: Pulmonary embolus workup COMPARISON STUDY: Right lower extremity venous Doppler ultrasound March 18, 2012. TECHNIQUE: Sonography of the deep venous system of the bilateral lower extremities was performed. Compression and augmentation were evaluated. FINDINGS: Note is made of deep venous thrombus within the right femoral and popliteal veins. No deep venous thrombus within the left lower extremity is noted. IMPRESSION: Deep venous thrombus within the right femoral and popliteal veins. ACT 112: Negative or not required by law. Electronically signed by: To Cooper M.D. 03/02/2021 7:33 AM Dictated:03/02/21730 Transcribed: 03/02/21730 CT angio chest PE protocol CT DOSE: 307.04 mGy.cm HISTORY: 76 years-old Female with ro PE. Acute shortness of breath TECHNIQUE: Multiple CTA images of the chest were obtained after the intravenous administration of 117 ml Optiray. Coronal and sagittal MIPS were obtained from the axial data set and were submitted for review. All measurements were obtained according to NASCET criteria. A dose lowering technique was utilized adhering to the principles of ALARA. COMPARISON: Chest radiograph of same day, CT lumbar spine 01/22/2021 FINDINGS: CTA: Moderate cardiomegaly. Trace pericardial effusion. Moderate coronary artery calcifications. The left heart structures are suboptimally opacified secondary to contrast bolus timing. Fusiform dilation of the descending thoracic aorta measures 4.0 x 4.0 cm. Mild associated atherosclerosis. Extensive bilateral pulmonary emboli involve the distal lobar branches extending into the segmental and subsegmental branches within all lobes bilaterally. Straightening of the intraventricular septum. Dilated right heart chambers with reflux of contrast into the IVC and hepatic veins. CT CHEST: Heterogeneity of the thyroid. No adenopathy. The inferior lung bases are only partially imaged. No pneumothorax or definite pleural effusion. Subsegmental left greater than right bibasilar atelectasis with areas of air trapping. There are a few scattered subsegmental subpleural groundglass densities noted throughout the right lung. The central airways appear patent. Tiny hiatal hernia with mild distal esophageal wall thickening. There are a few hypodensities of the left hepatic lobe measuring up to 7 mm which are too small to characterize, possibly cysts. Unremarkable soft tissues. Degenerative changes of the shoulders and spine. Acute 40% superior endplate compression deformity of the T11 vertebral body demonstrates 3 mm retropulsion. Mild paravertebral edema. IMPRESSION: 1. Extensive bilateral pulmonary emboli with evidence of right heart strain. 2. Left greater than right bibasilar atelectasis with areas of mild associated air trapping. 3. Subsegmental scattered subpleural groundglass opacities throughout right lung are suggestive of an infectious or inflammatory pneumonitis. Developing pulmonary infarcts could appear similarly. 4. Acute 40% T11 superior endplate compression deformity with paravertebral edema, new from 01/22/2021. ACT 112: Negative or not required by law. The above report was generated using voice recognition software. It may contain grammatical, syntax or spelling errors. Electronically signed by: Hayden Cochran M.D. 03/01/2021 7:36 PM Dictated:03/01/211926 Transcribed: 03/01/211926 XR chest 1V portable HISTORY: 76 years-old Female Chest Pain acute atypical chest pain COMPARISON: Chest radiograph 01/22/2021 TECHNIQUE: Portable AP view of the chest FINDINGS: Cardiac silhouette is moderately enlarged. There is no pneumothorax, pleural effusion, airspace consolidation or overt pulmonary edema. There is unchanged mild interstitial coarsening of the lung bases. The bones appear grossly intact. A partially imaged linear metallic density needle shaped structure overlies the left AC joint, possibly external to the patient. IMPRESSION: Cardiomegaly without acute process. ACT 112: Negative or not required by law. The above report was generated using voice recognition software. It may contain grammatical, syntax or spelling errors. Electronically signed by: Hayden Cochran M.D. 03/01/2021 5:18 PM Dictated:03/01/211715 Transcribed: 03/01/211715 Hospital Course (1) Bilateral pulmonary embolism: (2) DVT (deep venous thrombosis): (3) Prothrombin gene mutation: (4) Hypertension: (5) HLD (hyperlipidemia): (6) Hypoxia: (7) CKD (chronic kidney disease), stage III: (8) Elevated troponin: Present on admission with worsening SOB CTA chest showed extensive bilateral pulmonary emboli with evidence of right heart strain. Left greater than right bibasilar atelectasis with areas of mild associated air trapping. Subsegmental scattered subpleural groundglass opacities throughout right lung are suggestive of an infectious or inflammatory pneumonitis. Developing pulmonary infarcts could appear similarly. Doppler U/S deep venous thrombus within the right femoral and popliteal veins. Starting on IV heparin drip ER physician discussed case with pulmonology/capacity analyst Dr. Yanes about that said patient is not a tPA candidate since her blood pressure is stable. ECHO done today showed showed right ventricle is severely dilated. Diffuse severe right ventricular hypokinesis. Severe pulmonary hypertension. finding com patible with RV strain. EF 55- 60% Currently on IV heparin drip If pt becomes unstable ( BP drops, [place] hypoxia) will notify pulm for possible TPA Discussed about warfarin and NOAC. she is interested in the NOAC Will transition to Eliquis tonight. Cost for eliquis is $47. Pt said that it is affordable Case discussed with Hematology Dr. García that agreed to transition to eliquis. Pt will l need anticoagulant for possible longtime Outpatient follow up with hematology Continue monitor for abnormal bleeding 2 step exercise done showed pt requires 2 L oxygen nasal cannula with exertion and ambulation only and none at rest Atrial fibrillation Patient with A. fib with rate control Converted to NSR this morning Telemonitor showed NSR/Bradycardia Continue Cardizem home dose. Cardiology on board case discussed with cardiology that recommended to continue current management. If bradycardia worsening, might consider to hold the cardizem Already on heparin drip for PE Continue IV heparin drip for the PE/DVT, will transition to Eliquis we will keep potassium above 4 and magnesium above 2 Follow up with cardiology Elevate troponin Mostly due to extensive PE due to RV strain Denies any chest pain Continue IV heparin drip for the PE/DVT, will transition to Eliquis Hypokalemia Potassium 4.0 today Continue monitor BMP HTN BP stable Code status Full code Disposition Possible discharge in am Total Time Total Time Spent Total Time Spent (In Minutes): 40 minutes Discharge Plan Discharge Items Patient Disposition: Home - Self-Care Reason For Visit: RESP FAILURE Discharge Diagnosis: (1) Bilateral pulmonary embolism: (2) DVT (deep venous thrombosis): (3) Prothrombin gene mutation: (4) Hypertension: (5) HLD (hyperlipidemia): (6) Hypoxia: (7) CKD (chronic kidney disease), stage III: (8) Elevated troponin: Activity: Resume your previous activity Non-emergency contact: Primary Care Provider and General Clerk Call non-emergency contact if: you have any medication questions and your symptoms worsen Follow-up/Referrals: Thuy Yousif DO [Primary Care Provider] - (Date & Time 03/10/2021 11:20 AM Provider Thuy Yousif DO Department [facility] ) Diet: Heart Healthy Addtl Attending Provider Instructions: Follow up with your primary care provider Dr. 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 All your children will have inherited one gene from you. Your will need to get tested for the MT HFR mutation gene if he never gets tested in the past. If your is tested negative for these genes then the children do not need to get tested. Medication Instructions:Eliquis Your condition is typically treated with an anticoagulant. Anticoagulants will thin your blood to help prevent new clots. You should take her medication exactly as directed. Never skip a dose. Never take a double dose. If you miss a dose, take it as soon as you remember. Avoid NSAIDs (Motrin, Aleve, Naproxen, Ibuprofen, Advil, Meloxicam,..) due to risks of bleeding Call your Primary Care doctor if you experience any of the following: Swelling or Pain in your leg Sudden, continuous pain deep in a muscle Pain that worsens when you are active or when you stand still for a long time Chest Pain Sudden Shortness of Breath Rapid or pounding heart beat Fainting Dizziness Cough with blood or bloody sputum Sweating more than normal Bruises Heavy or uncontrolled bleeding Blood in your urine, stool or vomit Black or tarry stools Caring for Your Self at Home: Avoid sitting, standing or lying down for long periods without moving your legs and feet When traveling by car, stop to get out and move around at least once every 3 hours On long airplane, train or bus rides, get up and move around when possible If you can't get up, wiggle your toes and tighten your calves to keep your blood moving Follow Up: It is important for you to keep your follow up appointments with your medical provider. Pending Studies at Discharge: No Stand-Alone Forms: My [facility] XOG, Smoking Cessation Medications and DC Order Prescriptions: New Eliquis 5 mg tablet 5 mg PO BID Qty: 74 RF: 0 Continued atorvastatin 10 mg tablet 10 mg PO DAILY RF: 0 cyanocobalamin (vitamin B-12) [Vitamin B-12] 1,000 mcg Tablet 1,000 mcg PO DAILY RF: 0 lisinopril-hydrochlorothiazide 20-25 mg tablet 1 tab PO DAILY RF: 0 diltiazem HCl 120 mg capsule,extended release 24hr 120 mg PO DAILY RF: 0 dorzolamide-timolol 22.3-6.8 mg/mL drops 1 drp ophthalmic (eye) DIRECTED RF: 0 folic acid 0.8 mg Capsule 0.8 mg PO DAILY RF: 0 Discharge Orders: Discharge Order (Routine); Ordered 03/06/21 Ordered By: Cody Kwon/Other Patient Handouts: DVT Complications, Pulmonary Embolism, Prediabetes, 5 Steps for Eating Healthier, Understanding Atrial Fibrillation Admission Data Admit Date/Time: 03/01/21 22:19 Attending Provider: Cody Crawford Admit Provider: Davonte Cavazos Primary Care Provider: Thuy Yousif Other Providers: Davonte Cavazos ; Chu Curtis Other Interventions: Discharge Summary Assessment (RN) Last Done: 03/06/21 16:34
== END 2021-03-06 17:55 | disposition home or self-care (01) | DRG 175 ==
LOC: ED 16:19 → EDINP 22:19 → 2N 03-02 16:49